=== PATIENT | male | born 1945 | race Caucasian/White ===

== ENCOUNTER 2018-06-09 10:48 | Inpatient (IN) ==
[2018-06-09 11:18] LABS: URINE SOURCE CLEAN CATCH
[2018-06-09 11:25] LABS: BILIRUBIN URINE NEGATIVE (NEGATIVE); BLOOD URINE NEGATIVE (NEGATIVE); COLOR YELLOW; GLUCOSE URINE NEGATIVE (NEGATIVE); KETONE URINE TRACE mg/dL (NEGATIVE); LEUKOCYTES URINE MODERATE (NEGATIVE); NITRITE URINE NEGATIVE (NEGATIVE); PH URINE 5.5; PROTEIN URINE 30 mg/dL (NEGATIVE); SP GRAVITY URINE 1.025; TURBIDITY URINE CLEAR (CLEAR); UROBILINOGEN URINE 2 mg/dL (NORMAL)
[2018-06-09 11:27] LABS: UR EPITHELIAL CELLS <10 /HPF (<10); URINE BACTERIA NEGATIVE /HPF; URINE RBC <10 /HPF (<10)
[2018-06-09 11:51] LABS: ALB/GLOB RATIO 1.5; CREATININE 1.3 mg/dL (0.7-1.2); POTASSIUM 4.2 mmol/L (3.5-5.1); TOTAL BILIRUBIN 1.5 mg/dL (0.20-1.00); TOTAL PROTEIN 6.6 g/dL (6.3-8.3)
[2018-06-09 11:56] LABS: BASO# 0.02 X1000 (0.0-0.2); BASO% 0.3 % (0.0-0.8); EOS# 0.02 X1000 (0.0-0.7); EOS% 0.3 % (0.0-10.0); HEMATOCRIT 38.8 % (42.0-52.0); IMM GRAN# 0.02 X1000 (0.0-0.04); IMM GRAN% 0.3 % (0.0-0.5); LYMPH# 0.35 X1000 (1.2-3.4); LYMPH% 4.4 % (20.5-51.1); MCHC 33.5 g/dL (33-37); MCV 86.6 FL (81-99); MONO% 6.3 % (1.7-9.3); MPV 11.1 FL (7.4-10.4); NEUT# 6.98 X1000 (1.4-6.5); NEUT% 88.4 % (42.2-75.2); PLT 170 X1000 (130-400); RBC 4.48 XMIL (4.7-6.1); RDW 13.6 % (11.5-14.5); WBC 7.89 X1000 (4.8-10.8)
--- NOTE | 2018-06-09 13:07 | Diag Imaging Result Doc PS360 ---
EXAM: CT ABD/PELVIS W/IV CONT ONLY INDICATION: abdo pain TECHNIQUE: This exam was performed using automated exposure control, adjustment of mA or kV according to patient size, and/or use of iterative reconstruction technique. COMPARISON: None. FINDINGS: There is subsegmental atelectasis at both lung bases. There are calcified left hilar lymph nodes indicating prior granulomatous disease and there are calcified granulomata in the lingula. There are calcified granulomata in the liver and spleen. The liver and spleen are unremarkable, otherwise. There is suggestion of mild gallbladder wall thickening and mild pericholecystic stranding. No radiopaque stones are identified. The gallbladder is distended. Correlate clinically for right upper quadrant pain as early cholecystitis cannot completely be excluded. There is no evidence of biliary dilatation. The pancreas is atrophic. There is a nodular focus involving the tail the pancreas that is best seen on image 56 of series 2 measuring 2.2 x 1.8 cm axially. It is nonspecific. Neoplasm cannot be excluded. Consider at least a follow-up CT. MRI may also be helpful if clinically warranted. There are a couple of small simple appearing renal cysts on the right. There are several nonobstructing intrarenal stones on the right. The prostate is enlarged. The urinary bladder is unremarkable. There is extensive diverticulosis coli mainly involving the descending and sigmoid colon. There is no evidence of diverticulitis. The appendix is normal. There is a small to moderate-sized hiatal hernia. There are a few nonspecific fluid-filled loops of small bowel with air-fluid levels with only mild distention. They are nonspecific. There is nothing that would necessarily indicate obstruction. No free abdominal gas or free fluid is identified. IMPRESSION: 1.Mild thickening of the gallbladder wall with surrounding subtle stranding. Mild cholecystitis cannot be excluded. Please correlate with clinical exam. 2.Atrophic pancreas with a small nodular focus involving the tail that is nonspecific. A small neoplasm cannot completely be excluded. Please see above discussion. 3.Nonspecific mildly prominent fluid-filled loops of small bowel that can be seen with mild enteritis. There is nothing that is specific for obstruction. 4.Other incidental/nonacute findings detailed above. Electronically signed by Hossein Miranda 06/09/2018 1:05 PM
[2018-06-09] MEDS ORDERED: NS 1,000 ML IV ONE ×2 (13:27→18:29)
--- NOTE | 2018-06-09 13:38 | PROVIDER DOCUMENTATION ---
This chart was entered by Yola Wong Scribe, acting as scribe for Dontrell Barros MD. HPI-Abdominal Pain/GI Problem - General Chief Complaint: Abdominal Pain Stated Complaint: ABDOMINAL PAIN Time Seen by Provider: 06/09/18 10:49 Source: patient, family Allergies/Adverse Reactions: Patient Allergies Allergy/AdvReac Type Severity Reaction Status Date / Time No Known Allergies Allergy Verified 06/09/18 11:14 Home Medications: Home Medication List Medication Instructions Recorded Confirmed Last Taken Type Aspirin 81 mg PO DAILY 07/26/15 12/01/15 11/26/15 History Amantadine [Symmetrel] 100 mg PO TID 11/27/15 12/01/15 12/01/15 08:00 History Carbidopa/Levodopa [Rytary ER 1 each PO DAILY 11/27/15 12/01/15 11/30/15 08:00 History 36.25 mg-145 mg Cap] Carbidopa/Levodopa/Entacapone 1 each PO 4XDAY 11/27/15 12/01/15 12/01/15 08:00 History [Stalevo 200 Tablet] Celecoxib [Celebrex] 200 mg PO DAILY 11/27/15 12/01/15 11/30/15 21:00 History Donepezil [Aricept] 5 mg PO QAM 11/27/15 12/01/15 11/30/15 21:00 History Pramipexole Di-HCl [Mirapex] 1 mg PO DAILY 11/27/15 12/01/15 11/30/15 08:00 History Quetiapine Fumarate [Seroquel] 100 mg PO DAILY 11/27/15 12/01/15 11/30/15 21:00 History Rasagiline Mesylate [Azilect] 1 mg PO DAILY 11/27/15 12/01/15 11/30/15 08:00 History Hydrocodone/APAP 10 mg/325 mg 1 each PO Q4H PRN #30 tablet 12/01/15 Unknown Rx [[place]-10] Bisacodyl [Dulcolax] 10 mg PO DAILY PRN PRN #20 tab 06/08/18 Unknown Rx Bisacodyl [Dulcolax] 10 mg [place] PRN PRN #10 supp 06/08/18 Unknown Rx Docusate Sodium [Colace] 100 mg PO DAILY #10 cap 06/08/18 Unknown Rx - History of Present Illness-ABD Nature of Presenting Problems: Patient is a 72 year old male who presents to the ED via EMS with epigastric abdominal pain that has gradually worsened. Patient's states patient has a history of constipation and was recently put on Linzess. Denies improvement of symptoms after taking Linzess. report the patient has Parkinson's and dementia but has not been taking his medications for 5 days due to pain. Reports patient has been having hallucinations since not taking medications. Abdominal Pain Onset Location: reports: epigastric Pain Radiation: reports: no radiation Quality of Pain: reports: aching Severity in ED: reports: moderate Onset/Duration: reports: gradual Timing: reports: still present, getting worse Activities at Onset: reports: light activity Modifying Factors: improves with: nothing Associated Symptoms: reports: denies symptoms Bruising or Bleeding Gums?: No Similar Symptoms Previously?: Yes Recently seen or treated by another doctor?: Yes Review of Systems - Adult - REVIEW OF SYSTEMS - ADULT Constitutional: reports: no symptoms reported. denies: chills, fever, fatique Eyes: reports: no symptoms reported Ears, Nose, Mouth & Throat: reports: no symptoms reported Cardiovascular: reports: no symptoms reported Respiratory: reports: no symptoms reported Gastrointestinal: reports: see HPI, abdominal pain (epigastric). denies: diarrhea, nausea, vomiting Genitourinary: reports: no symptoms reported Musculoskeletal: reports: no symptoms reported. denies: back pain, muscle aches, neck pain Integumentary: reports: no symptoms reported Neurological: reports: no symptoms reported Psychiatric: reports: other (hallucinations). denies: anxiety, depression, insomnia Endocrine: reports: no symptoms reported Hematologic/Lymphatic: reports: no symptoms reported Allergic/Immunologic: reports: no symptoms reported All Other Systems: Reviewed and Negative Past History - Adult - PAST MEDICAL HISTORY-ADULT Review of Records: reports: Nursing Assessment Review, Medications Reviewed, Social history reviewed & non-contributory. Major Childhood Illnesses: reports: denies history Cardiovascular: reports: denies history Respiratory: reports: denies history Gastrointestinal: reports: denies history Obstetrical/Gynecological: reports: denies history Genitourinary: reports: denies history Musculoskeletal: reports: denies history Neurological: reports: dementia, Parkinson's Psychiatric: reports: denies history Endocrine/Immune: reports: denies history Other Conditions: reports: denies history - PRIOR SURGERIES/PROCEDURES Surgical/Procedure History: reports: reviewed, not pertinent - IMMUNIZATION STATUS Childhood Immunizations: See Nurse Assessment Flu Vaccine: See Nurse Assessment - FAMILY HISTORY Family History: reviewed, not pertinent - SOCIAL HISTORY Smoking: denies Substance Use: denies Living Situation: family Physical Exam-General - PHYSICAL EXAM-ADULT Initial Vital Signs Reviewed: Yes - CONSTITUTIONAL General Appearance: alert, no apparent distress. negative: slow to respond, obtunded - RESPIRATORY Respiratory: chest non-tender, lungs clear, normal breath sounds. negative: crackles, rhonchi - CARDIOVASCULAR Cardiovascular: normal peripheral pulses, regular rate, rhythm. negative: tachycardia, systolic murmur - GASTROINTESTINAL (ABDOMEN) Abdominal Exam: normal bowel sounds, soft, tenderness (epigastric and suprapubic). negative: distended - MUSCULOSKELETAL Extremity: non-tender, normal inspection. negative: deformity, erythema - SKIN Integumentary: normal color, normal turgor, warm/dry. negative: cyanosis, ecchymosis, erythema, jaundice - NEUROLOGIC Neurologic: grossly normal. negative: aphasia, facial droop - PSYCHIATRIC Psych/Mental Status: normal mood/affect, oriented x 3. negative: paranoid, tearful Progress - PLAN OF CARE/RESULTS Progress/Plan/Lab Results: Vital Signs - 8 hr 06/09/18 11:01 Temperature 98.0 F Pulse Rate 102 H Respiratory Rate 17 Blood Pressure 134/91 O2 Sat by Pulse Oximetry 99 Laboratory Results - last 24 hr 06/09/18 11:01 Urine Source CLEAN CATCH Orders Category Date Time Status CT ABD/PELVIS W/IV CONT ONLY [CT] Stat Exams 06/09/18 11:06 Ordered CBC WITH ELECTRONIC DIFF [HEME] Stat Lab 06/09/18 11:05 Uncollected COMPREHENSIVE METABOLIC PANEL [CHEM] Stat Lab 06/09/18 11:05 Uncollected UA [URINALYSIS] [URINALYSIS] Stat Lab 06/09/18 11:01 Results Result Diagrams: 06/09/18 11:30 06/09/18 11:30 - EKG 1 Time of EKG reading by physician:: 13:53 EKG Read and Signed by:: Dontrell Barros EKG Interpretation (*Must complete 3 of following elements*): Abnormal (ST & T wave abnormality, consider lateral ischemia) Rate: 133 Rhythm: sinus tachycardia AK Interval: normal Comments: possible inferior infarct, age undetermined; - XRAY 1 XRAY Study: Chest Impression: See EMR Report ( EXAM: CHEST-1 VIEW 06/09/2018 HISTORY: sepsis protocol TECHNIQUE: AP portable upright at 1429 COMMENT: The inspiration is suboptimal. There is bibasilar atelectasis. There are calcifications in the left hilum. There are no previous studies available for comparison. IMPRESSION: Granulomatous changes. Poor inspiration. Bibasilar atelectasis. Electronically signed by Jc Hutson 06/09/2018 2:37 PM 06/09/18 1437 Interpreting Physician: Jc Hutson MD Dictated Date/Time: 06/09/18 1436 cc: Dontrell Barros MD; None,PCP) - CT/MRI 1 CT Study: Abdomen, Pelvis Impression: See EMR Report (EXAM: CT ABD/PELVIS W/IV CONT ONLY INDICATION: abdo pain TECHNIQUE: This exam was performed using automated exposure control, adjustment of mA or kV according to patient size, and/or use of iterative reconstruction technique. COMPARISON: None. FINDINGS: There is subsegmental atelectasis at both lung bases. There are calcified left hilar lymph nodes indicating prior granulomatous disease and there are calcified granulomata in the lingula. There are calcified granulomata in the liver and spleen. The liver and spleen are unremarkable, otherwise. There is suggestion of mild gallbladder wall thickening and mild pericholecystic stranding. No radiopaque stones are identified. The gallbladder is distended. Correlate clinically for right upper quadrant pain as early cholecystitis cannot completely be excluded. There is no evidence of biliary dilatation. The pancreas is atrophic. There is a nodular focus involving the tail the pancreas that is best seen on image 56 of series 2 measuring 2.2 x 1.8 cm axially. It is nonspecific. Neoplasm cannot be excluded. Consider at least a follow-up CT. MRI may also be helpful if clinically warranted. There are a couple of small simple appearing renal cysts on the right. There are several nonobstructing intrarenal stones on the right. The prostate is enlarged. The urinary bladder is unremarkable. There is extensive diverticulosis coli mainly involving the descending and sigmoid colon. There is no evidence of diverticulitis. The appendix is normal. There is a small to moderate-sized hiatal hernia. There are a few nonspecific fluid-filled loops of small bowel with air-fluid levels with only mild distention. They are nonspecific. There is nothing that would necessarily indicate obstruction. No free abdominal gas or free fluid is identified. IMPRESSION: 1.Mild thickening of the gallbladder wall with surrounding subtle stranding. Mild cholecystitis cannot be excluded. Please correlate with clinical exam. 2.Atrophic pancreas wi th a small nodular focus involving the tail that is nonspecific. A small neoplasm cannot completely be excluded. Please see above discussion. 3.Nonspecific mildly prominent fluid-filled loops of small bowel that can be seen with mild enteritis. There is nothing that is specific for obstruction. 4.Other incidental/nonacute findings detailed above. Electronically signed by Hossein Miranda 06/09/2018 1:05 PM 06/09/18 1305 Interpreting Physician: Hossein Miranda MD Dictated Date/Time: 06/09/18 1246 cc: Dontrell Barros MD; None,PCP) - CONSULTS/PCP/HOSPITALIST Notification #1 *Consult/PCP/Hospitalist*: RAFI Martinez for Hospitalist Time Discussed: 13:31 Reason/Comments: Dr. Barros consulted with Michelle about patient. Consult Disposition: Will see in ED, Admit Departure - Departure Date of Disposition Decision: 06/09/18 Time of Disposition Decision: 13:31 DIAGNOSIS: Abdominal pain of unknown cause, Abdominal mass, UTI (urinary tract infection) Disposition: ADMITTED INPATIENT 09 Certified Medical Emergency: Emergent Condition: Fair - Critical Care Note This patient required my direct & personal management of CC.: No Attestation - Physician/ DIVYA Attestation Patient care was provided by Advanced Practice Provider:: No The physician spent face to face time with patient:: Yes Advanced Practice Provider documentation review:: Supervising physician onsite and consulted in the evaluation and care of this patient. The physician did have a face to face encounter with the patient. This chart was documented by the indicated scribe, (Yola Wong Scribe) and accurately reflects the services I performed and decisions made by me, Dontrell Barros MD, as attested by the provider's signature.
[2018-06-09] MEDS ORDERED: TYLENOL PO ONE (13:51)
[2018-06-09] MEDS ORDERED: ZOSYN 3.375 GM in NS 50 ML IV ONE (13:55)
[2018-06-09] MEDS ORDERED: VANCOMYCIN 1 GM/NS 1 GM/250 ML IVPB IV ONE (13:55)
[2018-06-09] MEDS ORDERED: HALDOL ONE (14:00)
[2018-06-09] MEDS ORDERED: HALDOL IV ONE (14:01)
[2018-06-09] MEDS ORDERED: ZOFRAN IV PRN (14:08)
[2018-06-09] MEDS ORDERED: NS NEB INH SCH (14:15)
[2018-06-09 14:30] LABS: ALLEN TEST NO; BE -1.5 mmoll (-3.0-3.0); BLOOD TYPE ARTERIAL; HCO3-(ACT) 23.7 mmoll (20.0-26.0); METHB 1.1 % (0.0-1.5); MODALITY ROOM AIR; O2(CT) 17.4 mL/dL (15.0-23.0); PCO2(98.6) 27 mmHg (35-45); PO2(98.6) 82 mmHg (60-100); SAMPLE BLOOD; pH(98.6) 7.49 (7.35-7.45)
--- NOTE | 2018-06-09 14:39 | Diag Imaging Result Doc PS360 ---
EXAM: CHEST-1 VIEW 06/09/2018 HISTORY: sepsis protocol TECHNIQUE: AP portable upright at 1429 COMMENT: The inspiration is suboptimal. There is bibasilar atelectasis. There are calcifications in the left hilum. There are no previous studies available for comparison. IMPRESSION: Granulomatous changes. Poor inspiration. Bibasilar atelectasis. Electronically signed by Jc Hutson 06/09/2018 2:37 PM
[2018-06-09] MEDS: PROTONIX IV SCH (14:51)
[2018-06-09] MEDS: NS 1,000 ML IV SCH (14:51)
[2018-06-09] MEDS: TYLENOL PR PRN (14:52)
--- NOTE | 2018-06-09 16:14 | HISTORY AND PHYSICAL ---
HISTORY OF PRESENT ILLNESS: This is a 72-year-old. His states that 6 days ago, almost a week ago, he started having abdominal discomfort. He went and saw his primary care physician. They tried him on Linzess but only took that 1 day. He did have a bowel movement at that time. I think he came to the emergency room yesterday and they gave him an enema, but she has noticed his abdomen is still uncomfortable. He is more confused and disoriented. In the emergency room, noticed he was spiking a fever. He cannot really help you with history at all. He is lethargic but yet very uncomfortable. PAST MEDICAL HISTORY: Parkinsonism and is on his medications which he has not been taking for the last 6 days because he did not want to. He is not really eating or drinking much at all. He has not had a bowel movement most of the week. I think yesterday, came to the emergency room, had an enema. Here in the hospital, he had a CT of his abdomen. He has mild thickening of the gallbladder wall, surrounding subtle stranding, mild cholecystitis could not be excluded. Atrophic pancreas with small nodular focus involving the tail, nonspecific. Small neoplasm could not be excluded. Nonspecific, mildly prominent fluid-filled loops in small bowel which could represent enteritis. He has had shoulder arthritis. He has had inguinal hernia repair. He still has his gallbladder and appendix. I do not think he has had any abdominal surgery. FAMILY HISTORY: Arthritis in his mother. Sister with diabetes. Father with heart disease. SOCIAL HISTORY: Negative for alcohol or tobacco. REVIEW OF SYSTEMS: According to , she has not noticed any weight gain or loss but he has not been eating or drinking much this last week. She has not noticed any focal neurologic changes or changes in his hearing or visual acuity. No neck pain. No recent falls reported. Cardiovascular: No chest pain or tachy palpitations. Gastrointestinal and Genitourinary: No complaints, according to , other than the abdominal pain and discomfort, and the constipation PHYSICAL EXAMINATION: VITAL SIGNS: Temperature was 102.8 degrees, pulse 130, respirations 35, blood pressure 165/112. HEENT: Pupils are equal and round. LUNGS: Clear in all lung [place]. CARDIOVASCULAR EXAMINATION: Regular rhythm and rate without murmur or S3. ABDOMEN: Uncomfortable. He will not really let you examine it. Positive bowel sounds in his abdomen. EXTREMITIES: No pedal edema. SKIN: Warm and dry. WEIGHT AND HEIGHT: Weight 170 pounds, height 6 feet. LAB: CBC: White count 7890, hematocrit is 38, platelet count 170,000. Sodium 139, potassium 4.2, chloride 106, BUN 28, creatinine 1.3. Total bilirubin 1.5, AST 18, ALT was 9. Urinalysis unremarkable. ASSESSMENT AND PLAN: 1. Abdominal pain. It could very well be cholecystitis. It could also be colitis or an enteritis. We are going to put him on broad-spectrum antibiotics to cover for gram-negative organisms and Enterococcus. Give him some fluids. I am going to ask gastroenterology and surgery to kind of help, follow along. He cannot really help us much with history. 2. Parkinsonism. He apparently is not taking his medication. He is confused and having some hallucinations as well. He is supposed to be on amantadine 100 mg three times a day, aspirin 81 mg a day, carbidopa/levodopa 36.25/125 capsule once a day, and then he takes Stalevo which is carbidopa/levodopa and entacapone 200 mg tablet 4 times a days, Celebrex 200 mg a day, Colace - he is supposed to take 100 mg a day, Aricept 5 mg a day, hydrocodone 10 mg every 4 hours as needed (we are going to hold that), Mirapex 1 mg daily, Seroquel 100 mg daily, and Azilect which is rasagiline 1 mg daily, so we will try and get him back on his Parkinson's medicines. 3. He apparently has a history of dementia and cognitive decline. 4. Questionable diverticulitis, colitis. He definitely has diverticulosis. We will give him fluids at 85 mL an hour. Looking back, I do not see any evidence of an echocardiogram so it would probably be worthwhile to get an echocardiogram to look at his left ventricular function. We will check T4, TSH, B12, and folate. Follow his electrolytes including magnesium and ask DR. Osman and general surgery to follow along. I guess I will try to use Haldol as needed. I did talk to family that he may require four-point restraint. We are going to move him to the intensive care unit. cc: Gino Kaye MD
[2018-06-09 16:21] LABS: INR 1.16; PROTIME 15.7 Seconds (11.0-16.0)
[2018-06-09 16:22] LABS: PTT 35.2 Seconds (22.3-41.8)
[2018-06-09] MEDS: ATROVENT NEB INH SCH ×3 (16:30→23:36)
[2018-06-09] MEDS: XOPENEX NEB INH SCH ×3 (16:30→23:36)
[2018-06-09 17:51] LABS: AMYLASE 12 U/L (20-200); LIPASE 10 U/L (13-60)
[2018-06-09] MEDS ORDERED: NS 1,000 ML IV SCH (18:00)
--- NOTE | 2018-06-09 20:36 | GENERAL SURGERY CONSULTATION ---
DATE: 06/09/2018 REASON FOR CONSULTATION: Abdominal pain, possible cholecystitis. HISTORY OF PRESENT ILLNESS: This is a 72-year-old male with known Parkinson disease who over the last 6 days has been complaining of upper abdominal pain, swelling, bloating and nausea. He has had a few bowel movements after taking Linzess and having an enema, but continues to have abdominal distention and discomfort. He is more confused than baseline. He also started spiking a fever today. The patient is really not able to give much history and the history is obtained from his family. No particular exacerbating or relieving factors. PAST MEDICAL HISTORY: Parkinson disease, gastroesophageal reflux disease. PAST SURGICAL HISTORY: Bilateral open inguinal hernia repairs, right rotator cuff surgery. ALLERGIES: No known drug allergies. FAMILY HISTORY: Positive for arthritis, diabetes and heart disease. SOCIAL HISTORY: Negative for tobacco or alcohol. REVIEW OF SYSTEMS: Unable to obtain. HOME MEDICATIONS: Aspirin, Seroquel, Aricept, Celebrex, Symmetrel, Stalevo, Mirapex, Rytary, [place], Dulcolax, Colace. PHYSICAL EXAMINATION: Vital Signs: Temperature 102.8, pulse 101 to 130, respiratory rate 17 to 35, blood pressure 118/84. O2 sat 96%. General: An elderly male who looks his stated age and appears to be ill. HEENT: Normocephalic, atraumatic. Extraocular muscles intact. Pupils equal, round, reactive to light. Sclerae anicteric. Neck: Supple. No thyromegaly. Cardiovascular: Tachycardic. Respiratory: Bilateral breath sounds. No work of breathing. Gastrointestinal: Soft, diffusely tender but mostly in the epigastrium. No rebound or guarding. No mass or hernia is appreciated. Extremities: No clubbing, cyanosis or edema. Skin: Warm and dry. No rash. Musculoskeletal: Moves all extremities equally. LABORATORY: White blood cell count 7.9, hemoglobin 13, hematocrit 38.8, platelet count 170,000, 88% neutrophils. pH 7.5, pCO2 27, PaO2 82, bicarb 23, base deficit -1.5, lactate 1.4. Sodium 139, potassium 4.2, chloride 106, CO2 24, BUN 28, creatinine 1.3, glucose 121, calcium 9.0, AST 18, ALT 9, alkaline phosphatase 69, total bilirubin 1.5, amylase 12, lipase 10, serum lactate 1.4. Urinalysis moderate leukocytes, 10 to 20 white blood cells, negative bacteria, negative nitrite. IMAGING: Abdominal and pelvis CT scan was reviewed by me and official report was also reviewed. He has a moderately distended gallbladder with mild gallbladder wall thickening and stranding around it. No radiopaque stones are identified. The pancreas appears atrophic and there is a nodular lesion in the tail of the pancreas measuring roughly 2 cm in size. This could be a neoplasm. There are several nonobstructing stones in the right kidney. The prostate is enlarged. There is extensive diverticulosis, but without evidence of diverticulitis. The appendix is normal. There is a small to moderate hiatal hernia. Several small bowel loops are mildly fluid- filled and distended. There is no free air or free fluid. ASSESSMENT AND PLAN: A 72-year-old male with abdominal pain, distention and fever. Etiology is unclear, but cholecystitis is suspected. We will start him on Zosyn. An ultrasound and HIDA scan are planned in the morning. I will also check an amylase and lipase to rule out pancreatitis. Thank you for the consultation. cc: Les Vasquez MD [facility]
[2018-06-09] MEDS ORDERED: MORPHINE IV ONE (20:44)
[2018-06-09] MEDS: ZOSYN 3.375 GM in NS 50 ML IV SCH (21:13)
[2018-06-09] MEDS: HALDOL IV PRN (23:47)
[2018-06-10 03:12] LABS: ALLEN TEST YES; BE -3.9 mmoll (-3.0-3.0); BLOOD TYPE ARTERIAL; HCO3-(ACT) 21.9 mmoll (20.0-26.0); METHB 1.1 % (0.0-1.5); MODALITY VENTIMASK; O2(CT) 17.4 mL/dL (15.0-23.0); O2HB 96.7 % (95.0-99.0); PCO2(98.6) 28 mmHg (35-45); PO2(98.6) 147 mmHg (60-100); SAMPLE BLOOD; SAO2 99.4 % (95.0-100.0); THB 12.6 g/dL (11.5-17.4); pH(98.6) 7.44 (7.35-7.45)
[2018-06-10] MEDS: NS 1,000 ML IV SCH (03:14)
[2018-06-10] MEDS: PROTONIX IV SCH ×2 (03:15→13:36)
[2018-06-10] MEDS: SODIUM CHLORIDE 0.9% INJ SCH ×2 (03:15→13:37)
[2018-06-10] MEDS: ZOSYN 3.375 GM in NS 50 ML IV SCH ×4 (03:15→20:13)
[2018-06-10] MEDS: HALDOL IV PRN (03:17)
[2018-06-10] MEDS: ATROVENT NEB INH SCH ×5 (03:30→20:10)
[2018-06-10] MEDS: XOPENEX NEB INH SCH ×5 (03:30→20:10)
[2018-06-10 03:53] LABS: BASO# 0.02 X1000 (0.0-0.2); BASO% 0.2 % (0.0-0.8); EOS# 0.03 X1000 (0.0-0.7); EOS% 0.3 % (0.0-10.0); HEMATOCRIT 37.6 % (42.0-52.0); HEMOGLOBIN 12.5 g/dL (14.0-18.0); IMM GRAN# 0.03 X1000 (0.0-0.04); IMM GRAN% 0.3 % (0.0-0.5); LYMPH# 0.22 X1000 (1.2-3.4); LYMPH% 2.3 % (20.5-51.1); MCH 28.9 PG (27-31); MCHC 33.2 g/dL (33-37); MONO# 0.42 X1000 (0.11-0.59); MONO% 4.3 % (1.7-9.3); MPV 11.8 FL (7.4-10.4); NEUT# 8.98 X1000 (1.4-6.5); NEUT% 92.6 % (42.2-75.2); PLT 160 X1000 (130-400); RBC 4.32 XMIL (4.7-6.1); RDW 13.9 % (11.5-14.5)
[2018-06-10 04:13] LABS: INR 1.35; PROTIME 17.8 Seconds (11.0-16.0)
[2018-06-10 04:14] LABS: PTT 37.9 Seconds (22.3-41.8)
[2018-06-10 04:15] LABS: ALB/GLOB RATIO 1.2; ALBUMIN 3.3 g/dL (3.5-5.0); CALCIUM 8.2 mg/dL (8.8-10.2); CREATININE 1.7 mg/dL (0.7-1.2); MAGNESIUM 1.6 mg/dL (1.5-2.7); TOTAL BILIRUBIN 1.25 mg/dL (0.20-1.00); TOTAL PROTEIN 6.1 g/dL (6.3-8.3)
[2018-06-10 04:26] LABS: HEMOGLOBIN A1C 4.7 % (4.8-6.0)
[2018-06-10 04:40] LABS: CK-MB 6.47 ng/mL (0.0-5.0)
[2018-06-10 04:52] LABS: FREE T4 1.19 ng/dL (0.93-1.70); TSH 1.67 uIUmL (0.27-4.20)
--- NOTE | 2018-06-10 06:48 | EKG Report ---
Test Performed on : 06/10/2018 06:26:31 AM Test Reason : chest pain Blood Pressure : / mmHG Vent. Rate : 102 BPM Atrial Rate : 102 BPM P-R Int : 176 ms QRS Dur : 086 ms QT Int : 342 ms P-R-T Axes : 017 -03 065 degrees QTc Int : 445 ms Sinus tachycardia. Minimal voltage criteria for LVH, may be normal variant Inferior infarct (cited on or before 09-JUN-2018) Abnormal ECG When compared with ECG of 09-JUN-2018 13:53, (Unconfirmed) No significant change was found Confirmed by Jesús CLINTON, Mack ([id number]) on 06/10/2018 8:53:24 AM
--- NOTE | 2018-06-10 07:35 | Diag Imaging Result Doc PS360 ---
EXAM: US GB < RUQ (LIMITED) HISTORY: abdominal pain TECHNIQUE: Right upper quadrant ultrasound COMPARISON: None. FINDINGS: The pancreas, aorta, and inferior vena cava are all obscured. There is fatty infiltration of the liver. It is difficult to penetrate the liver. Normal right kidney. No hydronephrosis. There is a lower pole cyst measuring 2.3 cm. The common bile duct measures 5 mm. There is thickening to the wall of the gallbladder with trace pericholecystic fluid. No stones or sludge identified. IMPRESSION: 1.Thickening to the wall of the gallbladder without stones consistent with acalculous cholecystitis 2.Fatty infiltration of the liver Electronically signed by Jm Mondragon 06/10/2018 7:33 AM
[2018-06-10] MEDS ORDERED: VANCOMYCIN IV PER PHARMACY MISC SCH (08:00)
--- NOTE | 2018-06-10 08:41 | EKG Report ---
Test Performed on : 06/09/2018 1:53:27 PM Test Reason : TACHYCARDIA Blood Pressure : / mmHG Vent. Rate : 133 BPM Atrial Rate : 133 BPM P-R Int : 168 ms QRS Dur : 086 ms QT Int : 278 ms P-R-T Axes : 036 -07 073 degrees QTc Int : 413 ms Sinus tachycardia. Possible Inferior infarct , age undetermined ST & T wave abnormality, consider lateral ischemia Abnormal ECG When compared with ECG of 09-JUN-2018 13:51, (Unconfirmed) Sinus rhythm. has replaced Electronic ventricular pacemaker Unconfirmed Result
--- NOTE | 2018-06-10 09:04 | Diag Imaging Result Doc PS360 ---
EXAM: HIDA SCAN W/O EJECT. FRACTION HISTORY: abdominal pain TECHNIQUE: Nuclear medicine HIDA scan COMPARISON: None. FINDINGS: 5.5 mCi Choletec administered. There is normal uptake within the liver. Normal emptying into the small bowel. There is no filling of the gallbladder through 1 1/2 hours. IMPRESSION: Abnormal exam with no filling of the gallbladder. Electronically signed by Jm Mondragon 06/10/2018 9:02 AM
[2018-06-10] MEDS: VANCOMYCIN 1,800 MG in NS 500 ML IV SCH (09:55)
--- NOTE | 2018-06-10 10:11 | PROGRESS NOTE ---
DATE: 06/10/2018 SUBJECTIVE: Mr. Brandon just finished getting his bath. His still appears uncomfortable. He did not open his eyes. He is moaning and you can tell he is still uncomfortable and confused. OBJECTIVE: Vital signs: Temperature 98.4 degrees, pulse 98, respirations 37, blood pressure 96/61. HEENT: Pupils are equal and reactive. Neck: No distended neck veins. Lungs: Clear in all lung [place]. Cardiovascular: Regular rhythm and rate without murmur or S3. Abdomen: Soft. Skin: Warm and dry. LABORATORY DATA: Reviewed from yesterday. White count 9700, hematocrit is 37, platelet count is 160,000. Sodium 140, potassium 4.0, chloride 108, BUN 30, creatinine 1.7 which has gone up from 1.3 yesterday, transaminases are normal. CK came up to 640. Troponin is less than 0.01. Albumin is 3.3. T4 is 1.19. TSH is 1.67. Cortisol 28. B12 is 298. Protime is 17.8. Urine is clear. pH is 7.44, pCO2 28, PO2 is 147, O2 saturation is 99% on 50% Ventimask. DIAGNOSTIC DATA: His ejection fraction by nuclear study for the gallbladder, there was no abnormal exam with no filling in the gallbladder on the HIDA scan. Abdominal ultrasound. Thickening of the wall of the gallbladder without stone consistent with acalculous cholecystitis. Fatty infiltration of the liver appreciated. Abdominal and pelvic CT done yesterday, mild thickening of the gallbladder with surrounding subtle stranding, mild cholecystitis cannot be excluded. Atrophic pancreas with small nodular focus involving the tail is nonspecific. There is mildly prominent fluid-filled loops of small bowel which could be consistent with enteritis. ASSESSMENT AND PLAN: 1. A 72-year-old male with abdominal pain, confusion, cannot help us much with history, distention and fever, etiology unclear. Cholecystitis is suspected, acalculous cholecystitis. Continue broad-spectrum antibiotics. HIDA scan shows abnormal filling. Surgery is following and GI will follow as well. 2. Parkinson disease. Trying to get him back on his normal medications. 3. Suspect underlying dementia as well. He has confusion and he has had a history of cognitive decline. 4. Questionable diverticulitis and colitis as well as possible small-bowel enteritis. We will continue current antibiotics. Getting normal saline at 85 mL an hour, Protonix 40 mg IV q.12, vancomycin 1800 mg 36 hours, Zosyn 3.375 g IV q.6 hours, vancomycin. Continue present therapy. cc: Gino Kaye MD MTDD
[2018-06-10] MEDS ORDERED: PATIENT'S OWN MED PO SCH ×2 (10:15→10:30)
[2018-06-10] MEDS ORDERED: ARICEPT PO SCH (10:15)
[2018-06-10] MEDS ORDERED: SEROQUEL PO SCH (10:15)
[2018-06-10] MEDS: ASPIRIN PO SCH (10:30)
[2018-06-10] MEDS: CYANOCOBALAMIN IM SCH (10:58)
[2018-06-10] MEDS: FOLIC ACID 1 MG in NS 50 ML IV SCH (10:58)
[2018-06-10] MEDS ORDERED: MORPHINE IV ONE (12:16)
[2018-06-10] MEDS: PATIENT'S OWN MED PO SCH ×5 (12:26→21:39)
[2018-06-10] MEDS: TYLENOL PR PRN (12:32)
--- NOTE | 2018-06-10 12:40 | GENERAL SURGERY PROGRESS NOTE ---
DATE: 06/10/2018 SUBJECTIVE: The patient continues to have evidence of abdominal pain. He also continues to be poorly responsive or at least somewhat agitated and uncooperative. He has not been able to get his home Parkinson medications because he is not alert enough to swallow water and take the pills. OBJECTIVE: His temperature has remained elevated off and on throughout the night. However, the most recent one was 99.2 at 9 this morning, pulse 108, respiratory rate 40, O2 saturation 96%, blood pressure 104/69. LABORATORY: White blood cell count 9.7, hemoglobin 12.5, hematocrit 37, platelet count 160. INR 1.35. The pH is 7.44, pCO2 28, PaO2 147, bicarbonate 21.9, base deficit -3.9, lactate 1.9. Electrolytes reviewed and notable for CO2 17, BUN 30, creatinine 1.7, glucose 117. IMAGING: His ultrasound did show a thickened gallbladder wall with pericholecystic fluid, and his HIDA scan showed no filling of the gallbladder. ASSESSMENT AND PLAN: A 72-year-old male with acute cholecystitis and altered mental status with a past medical history significant for Parkinson disease. We are planning laparoscopic cholecystectomy versus open cholecystectomy today. I discussed the risks, benefits, alternatives with his family, including his , including bleeding, infection, injury to surrounding organs, pneumonia, and other imponderables. They understand and agree to proceed. Postoperatively, we plan to allow him to take his Parkinson medications. His says that his mental status typically does decline when he misses doses, and usually rebounds after he takes his medicines. He remains on Zosyn. cc: Les Vasquez MD
[2018-06-10] MEDS ORDERED: SYMMETREL PO SCH (13:00)
[2018-06-10 13:35] LABS: ALLEN TEST YES; BE -2.5 mmoll (-3.0-3.0); BLOOD TYPE ARTERIAL; HCO3-(ACT) 22.9 mmoll (20.0-26.0); METHB 0.5 % (0.0-1.5); O2(CT) 15.2 mL/dL (15.0-23.0); O2HB 95.5 % (95.0-99.0); PCO2(98.6) 33 mmHg (35-45); PO2(98.6) 75 mmHg (60-100); SAMPLE BLOOD; SAO2 98.8 % (95.0-100.0); THB 11.3 g/dL (11.5-17.4); pH(98.6) 7.42 (7.35-7.45)
[2018-06-10 13:36] LABS: MODALITY CANNULA
[2018-06-10] MEDS ORDERED: MARCAINE 0.25% PF/EPI 1:200,000 ONE (13:54)
[2018-06-10] MEDS ORDERED: SODIUM CHLORIDE 0.9% ONE (13:55)
[2018-06-10] MEDS ORDERED: LR 1,000 ML ONE (13:55)
[2018-06-10] MEDS ORDERED: QUELICIN (DOSE) ONE (14:01)
[2018-06-10] MEDS ORDERED: XYLOCAINE-MPF 2% ONE (14:01)
[2018-06-10] MEDS ORDERED: DIPRIVAN 1% ONE (14:02)
[2018-06-10] MEDS ORDERED: AMIDATE ONE (14:33)
[2018-06-10] MEDS ORDERED: FENTANYL ONE (14:34)
[2018-06-10] MEDS ORDERED: ZEMURON ONE (14:47)
[2018-06-10] MEDS ORDERED: NEOSTIGMINE ONE (15:37)
[2018-06-10] MEDS ORDERED: ROBINUL ONE (15:37)
--- NOTE | 2018-06-10 16:05 | Diag Imaging Result Doc PS360 ---
OPERATIVE CHOLANGIOGRAM - 06/10/2018 INDICATION: CHOLECYSTITIS TECHNIQUE: The exam was performed by the patient's surgeon. Total fluoroscopy time was 16 seconds. One image was obtained. COMPARISON: None FINDINGS: Contrast was infused into the cystic duct. This outlines a normal caliber common bile duct. No filling defects or strictures. There is good passage of contrast into the duodenum. IMPRESSION: No complication. Electronically signed by Sudeep Boudreaux 06/10/2018 4:02 PM
--- NOTE | 2018-06-10 17:09 | ECHO REPORT ---
ORDER DATE: 06/10/2018 INDICATION: Abdominal pain and dyspnea. M-MODE MEASUREMENTS: Left ventricle end diastole: 4.1 cm. Left ventricle end systole: 2.2 cm. Posterior wall: 1.1 cm. Interventricular septum: 1.1 cm. Left atrium: 4.2 cm. Aortic diameter: 3.3 cm. SUMMARY OF 2-DIMENSIONAL IMAGIN. Left ventricular function is normal. Ejection fraction is 65% to 70%. No wall motion abnormality is noted. 2. The right ventricle appears to be grossly normal. 3. The atria appear to be grossly normal. 4. The mitral valve opens normally. Color flow mapping unremarkable. 5. Pulsed wave Doppler of mitral inflow shows reversal of the E and the A ratio. The ratio is 0.8. 6. Tissue Doppler of septal and lateral mitral annulus averages 7 cm. There is no diastolic dysfunction. 7. The aortic valve opens normally. There is mild degree of sclerosis of the aortic valve with no definite stenosis. 8. The pulmonic valve looks unremarkable. 9. The tricuspid valve shows a mild degree of regurgitation. The inferior vena cava did not appear to be dilated. 10. Pulmonary pressure is grossly at 31 to 36 mmHg. 11.There is no pericardial effusion, mass, and no thrombus. 12.The left atrium appears to be moderately enlarged. Clinical correlation is recommended. cc: MD Michelle Ellis CRNP
--- NOTE | 2018-06-10 17:30 | Diag Imaging Result Doc PS360 ---
CHEST/ABD TUBE PLACEMENT - 06/10/2018 INDICATION: NG tube placement confirmation. COMPARISON: 06/09/2018 FINDINGS: Detail is very poor. Nasogastric tube position is indeterminate. IMPRESSION: Nondiagnostic exam. Repeat x-ray recommended. Electronically signed by Sudeep Boudreaux 06/10/2018 5:28 PM
--- NOTE | 2018-06-10 18:07 | OPERATIVE NOTE ---
PROCEDURE DATE: 06/10/2018 PREOPERATIVE DIAGNOSIS: Acute cholecystitis. POSTOPERATIVE DIAGNOSIS: Acute cholecystitis. OPERATION: Laparoscopic cholecystectomy with operative cholangiogram. SURGEON: Lse Vasquez MD RAILROAD CAR REPAIRMAN: FILIPPO Vela ANESTHESIA: General. ESTIMATED BLOOD LOSS: 20 mL COMPLICATIONS: None apparent. SPECIMENS: Gallbladder. DRAINS: One #19 Sukhwinder. FINDINGS: The gallbladder was acutely inflamed. The cholangiogram revealed normal proximal hepatic radicles as well as distal common bile duct, with flow of contrast seen in the duodenum and without filling defects or stenoses. There was also bile staining of the peritoneum with some bile-tinged ascites and low-grade peritonitis. PROCEDURE: The patient was brought to the operating room and placed supine on the table. General anesthesia was induced. He was prepped and draped in the usual sterile fashion. Marcaine 0.25% was used to anesthetize our incisions. An 11 mm incision was made above the umbilicus. The fascia was exposed and incised sharply. Entry into the peritoneal cavity was obtained under direct vision with the Optiview device. Pneumoperitoneum was established. The camera was inserted. There was no evidence of injury to underlying structures. He was placed in reverse Trendelenburg and left rotation. Three 5 mm incisions for ports were placed across the epigastrium under direct vision. Another 11 mm port was placed in the right midabdomen under direct vision. A fan retractor was brought in, and this was used to hold down the omentum and colon for better exposure. The legal assistant grasped the gallbladder at the dome. I drained the gallbladder with the suction ammunition components inspector and needle, and then we lifted the gallbladder up superiorly. The triangle of Calot was dissected out with the [place] forceps, Kittner dissectors and hook cautery until the critical view was obtained. The cystic artery was clipped proximally and distally and incised in between. A clip was placed on the distal cystic duct. A ductotomy was made proximal to this with scissors. A 14-gauge Angiocath was passed through the right upper quadrant. The Taut cholangiogram catheter was passed through this into the cystic duct and held in place with a clip. The cholangiogram was performed with findings as noted above. The clipped catheter and Angiocath were removed. Three clips were placed on the proximal cystic duct. It was divided distal to these with scissors. The gallbladder was removed from liver bed using hook cautery, obtaining hemostasis as we went. The gallbladder was placed in an EndoCatch bag. I inspected the dissection area. There was some bloody oozing from the liver bed. I cauterized this with hook cautery. This appeared to significantly slow it down. I did place some Surgicel gauze against the raw areas of the liver bed in the gallbladder fossa. I then irrigated copiously and washed out the old blood, irrigation and bile in Morison pouch, over the right side of the liver, along the right paracolic gutter and in the pelvis. I then brought the gallbladder and bag out through the umbilical port site. I then brought a 19 Sukhwinder drain in and positioned it under the liver adjacent to the clips. It was anchored to the skin with 3-0 nylon and came out through a right lateral port site. We then desufflated the abdomen and removed the remaining ports. The right midabdominal incision fascia was closed with interrupted 0 Vicryl. The umbilical fascia was closed with a [id number] 0 Vicryl. The skin was closed with 4-0 subcuticular Biosyn. There were no apparent complications. He was awakened in fair condition and transferred to the ICU. cc: Les Vasquez MD
--- NOTE | 2018-06-10 18:45 | GASTROENTEROLOGY CONSULTATION ---
DATE: 06/10/2018 REASON FOR CONSULTATION: Abdominal pain, constipation. HISTORY OF PRESENT ILLNESS: This is a 72-year-old male who we have seen in the past. He was last seen in 2015. The patient had issues with GERD and dysphagia, had an EGD in 08/2015 that showed gastritis and esophagitis. He continued to have dysphagia, so repeat EGD was done in 10/2015 for esophageal dilation. The patient followed up with us in the office after the procedure, but had not followed back since then. He also had a colonoscopy in 2014 that showed diverticulosis and hemorrhoids. Information is currently obtained from his daughter and son. The patient is drowsy and somewhat confused. The daughter states he has had some issues with abdominal pain, abdominal swelling and constipation. He had seen his neurologist, Dr. Talbert, last Friday and was prescribed Linzess. Daughter states he took one Linzess dose and had severe diarrhea and abdominal pain. He has had progressive issues with abdominal distention and discomfort along with nausea, and came in for further evaluation. The patient also had reported fever. No reported evidence of blood in the stool or black stools. No evidence of hematemesis. During workup including CT scan, findings show mild thickening of the gallbladder wall with stranding, possible cholecystitis. He also had findings of atrophic pancreas, with a small nodular focus involving the tail that was nonspecific. Nonspecific prominent fluid-filled loops of the small bowel were noted. The patient had abdominal ultrasound that showed thickening to the wall of the gallbladder without noted stones, consistent with acalculous cholecystitis, and noted fatty infiltration of the liver. The patient then had a HIDA scan today that showed no filling of the gallbladder within 1-1/2 hours. The patient has been seen by [facility] and there are plans for cholecystectomy today. PAST MEDICAL HISTORY: Parkinson disease, GERD. PAST SURGICAL HISTORY: Inguinal hernia repair, right rotator cuff surgery. ALLERGIES: No known drug allergies. HOME MEDICATIONS: Uroxatral 10 mg; Symmetrel 100 mg 3 times a day; aspirin 81 mg daily; Dulcolax p.o. and suppositories as needed; carbidopa/levodopa 36/125 daily; Stalevo 200 mg 4 times a day; Celebrex 200 mg daily; Colace daily; Aricept 5 mg daily; [place] 10 one every 4 hours as needed; omeprazole 40 mg daily; Nuplazid 10 mg twice a day; Mirapex 1 mg daily; Seroquel 100 mg daily; Azilect 1 mg daily. SOCIAL HISTORY: Denies tobacco or alcohol use. REVIEW OF SYSTEMS: Per history of present illness. PHYSICAL EXAMINATION: Vital signs: Temperature 101 degrees, pulse 87, blood pressure 97/54. Generally, the patient was drowsy. He did arouse but he was confused at the time of my evaluation, prior to his surgery. HEENT: Normocephalic, atraumatic. Pupils equal, round and reactive to light. Sclerae are nonicteric. Respiratory: Lung sounds essentially clear. Cardiovascular: Regular rate and rhythm. Abdomen tender. LABORATORY DATA: Hematology: WBC 9.70, hemoglobin 12.5, hematocrit 37.6, MCV 87.0, platelets 160,000. Coagulation: Pro time 17.8, INR 1.35, PTT 37.9. Chemistry: Sodium 140, potassium 4.0, chloride 108, CO2 is 17, BUN 30, creatinine 1.7, glucose 117, calcium 8.2, magnesium 1.6. Total bilirubin 1.25, AST 27, ALT 20, alkaline phosphatase 66, creatine kinase is 645. Vitamin B12 is 298, folate 5.1. TSH 1.67, free T4 is 1.19. Cortisol 28.9. ASSESSMENT AND PLAN: 1. Abdominal pain. 2. Constipation. 3. Parkinson disease. 4. Findings consistent with cholecystitis. HIDA scan showed no filling of the gallbladder within 1-1/2 hours. The patient has been seen by [facility] and there are plans for cholecystectomy today. We will continue to follow. The patient may need to be added on laxative postoperatively since he has a history of constipation. Further plans will be made according to his progress. I have discussed this case with Dr. Osman. Further plans will be made as needed. Thank you for this consultation. Dictated by RAFI Love for Anthony Osman MD cc: RAFI Ramires MD
[2018-06-10] MEDS: MORPHINE IV PRN (19:03)
--- NOTE | 2018-06-10 19:13 | Diag Imaging Result Doc PS360 ---
CHEST/ABD TUBE PLACEMENT - 06/10/2018 6:37 PM INDICATION: NG tube placement confirmation COMPARISON: 5:06 PM FINDINGS: There is a nasogastric tube in good position in the stomach. IMPRESSION: Nasogastric tube in the stomach. Electronically signed by Sudeep Boudreaux 06/10/2018 7:10 PM
[2018-06-10] MEDS: SEROQUEL PO SCH (20:12)
[2018-06-10] MEDS: SYMMETREL PO SCH (20:12)
[2018-06-10] MEDS: ARICEPT PO SCH (20:12)
[2018-06-11] MEDS: XOPENEX NEB INH SCH ×7 (00:02→23:35)
[2018-06-11] MEDS: ATROVENT NEB INH SCH ×7 (00:02→23:35)
[2018-06-11] MEDS: NS 1,000 ML IV SCH (01:47)
[2018-06-11] MEDS: MORPHINE IV PRN ×3 (01:48→21:03)
[2018-06-11] MEDS: ZOSYN 3.375 GM in NS 50 ML IV SCH ×4 (01:52→21:04)
[2018-06-11] MEDS: PROTONIX IV SCH ×2 (01:52→13:57)
[2018-06-11] MEDS: SODIUM CHLORIDE 0.9% INJ SCH ×2 (01:52→13:57)
[2018-06-11 06:17] LABS: CALCIUM 8.1 mg/dL (8.8-10.2); CREATININE 1.6 mg/dL (0.7-1.2); POTASSIUM 3.9 mmol/L (3.5-5.1)
[2018-06-11 06:18] LABS: BASO# 0.01 X1000 (0.0-0.2); BASO% 0.1 % (0.0-0.8); EOS# 0.11 X1000 (0.0-0.7); EOS% 1.3 % (0.0-10.0); HEMOGLOBIN 11.7 g/dL (14.0-18.0); IMM GRAN# 0.02 X1000 (0.0-0.04); IMM GRAN% 0.2 % (0.0-0.5); LYMPH# 0.31 X1000 (1.2-3.4); LYMPH% 3.8 % (20.5-51.1); MCH 28.9 PG (27-31); MCHC 32.5 g/dL (33-37); MCV 88.9 FL (81-99); MONO# 0.25 X1000 (0.11-0.59); MPV 11.8 FL (7.4-10.4); NEUT# 7.53 X1000 (1.4-6.5); NEUT% 91.6 % (42.2-75.2); PLT 143 X1000 (130-400); RBC 4.05 XMIL (4.7-6.1); RDW 14.4 % (11.5-14.5); WBC 8.23 X1000 (4.8-10.8)
[2018-06-11] MEDS ORDERED: PRILOSEC PO SCH (07:00)
[2018-06-11] MEDS ORDERED: CARDIZEM IV ONE (08:30)
[2018-06-11] MEDS: SYMMETREL PO SCH ×2 (08:43→21:07)
[2018-06-11] MEDS: ASPIRIN PO SCH (08:43)
[2018-06-11] MEDS: D5 1/2 NS + KCL 20 MEQ 1,000 ML IV SCH ×2 (08:43→21:06)
[2018-06-11] MEDS: CYANOCOBALAMIN IM SCH (08:43)
[2018-06-11] MEDS: CARDIZEM 125 MG in NS 100 ML IV SCH ×2 (08:49→16:56)
--- NOTE | 2018-06-11 08:49 | GENERAL SURGERY PROGRESS NOTE ---
DATE: 06/11/2018 SUBJECTIVE: The patient has had a relatively uneventful night. He remains poorly responsive, but will show minimal response to verbal commands or physical stimulation. He did not get any of his Parkinson medications as the NG tube placement was difficult to confirm; it is in place now. OBJECTIVE: Vital Signs: He is afebrile. During my exam, his pulse was in the low 100s and then unexpectedly started jumping up into the 130s to 180s. Blood pressure 113/68, O2 saturation 97%, respiratory rate 23. Urine output 1000 mL. General: He is somnolent, but does open his eyes and wiggle his fingers to command, otherwise is poorly responsive. CV: Tachycardic and irregular I believe. Respiratory: Bilateral breath sounds. No work of breathing. GI: Soft, minimally tender. Incisions intact. MARCELA drain with old bloody drainage. Extremities: No significant edema in the extremities. LABORATORY: White blood cell count 8.2, hemoglobin 11.7, hematocrit 36, platelet count 143. Electrolytes notable for sodium 147, chloride 114, BUN 41, creatinine 1.6, glucose 115, calcium 8.1. IMAGING: An NG tube placement x-ray last night did show the tube down into the stomach. ASSESSMENT AND PLAN: A 72-year-old male postoperative day 1 laparoscopic cholecystectomy for acute cholecystitis. He also had bilious ascites and early peritonitis. His microbiology report shows gram-negative rods in the blood, so he is bacteremic, and now he is showing significant tachycardia. We will obtain a stat electrocardiogram and keep him in the intensive care unit, keep him on Zosyn. We will give him his Parkinson medications via the nasogastric tube and await further improvement in his mental status. He will remain on nothing by mouth for now otherwise. cc: Les Vasquez MD
[2018-06-11] MEDS ORDERED: LOPRESSOR IV PRN (09:05)
--- NOTE | 2018-06-11 09:29 | CARDIOLOGY CONSULTATION ---
DATE: 06/11/2018 CHIEF COMPLAINT ON PRESENTATION: Per chart review, looks to be abdominal discomfort and confusion. HISTORY OF PRESENT ILLNESS: Mr. Brandon is a 72-year-old male with a history of Parkinson's and dementia, who apparently came into the hospital on the with abdominal discomfort. He had been off of his Parkinson's medications for a period of time. He is not able to give any history. He grimaces to physical stimuli presently. He had a cholecystectomy performed on the per Dr. Vasquez. He apparently went into rapid atrial fibrillation this morning. He has no previous cardiac history that we are aware of. PAST MEDICAL HISTORY: Consistent for Parkinson's with apparent associated confusion/dementia/hallucinations. History of inguinal hernia repair. History of arthritis. SOCIAL HISTORY: No current alcohol or tobacco. He is . FAMILY HISTORY: Unable to be obtained secondary to the patient's current confusion. REVIEW OF SYSTEMS: Unable to be obtained secondary to the patient's current confusion. CURRENT PHYSICAL EXAMINATION: Vital signs: He is currently afebrile but had a T-max of 101.1 degrees yesterday at 12 and a temperature of 102.8 degrees on the . Heart rate currently is in the 120s, blood pressure 108/68. General: He is in no acute distress. He grimaces to physical stimuli. HEENT: Oropharynx is moist. Normal dentition. Eye examination shows pink conjunctivae. White sclerae. Neck: Shows no obvious thyromegaly or thyroid tenderness. Cardiovascular: He sounds to be in a tachycardic and irregular rhythm. He has no obvious murmurs. He has no S3. He has no lower extremity edema. He has warm and well perfused lower extremities. Chest: Sounds clear to auscultation bilaterally. He does not cooperate with the examiner. He has no increased work of breathing. Abdomen: Tender diffusely to palpation. He has laparoscopic incisions noted. No bowel sounds were heard. He has an NG tube in place. Skin: Warm and dry throughout. Neurological: He does not follow commands. He grimaces to physical stimuli. PERTINENT DATA: He had an echocardiogram performed earlier this hospitalization on the with an EF of 65 to 70 percent, mild TR. Aortic valve appeared normal. Mitral valve appeared normal. PA pressure in the low to mid 30s. Right ventricle appeared normal. His EKG this morning reviewed by me demonstrates rapid atrial fibrillation, rate of 141 beats per minute. His white count is 8.2, his hematocrit is 36, his platelet count is 143,000. His sodium is 147, potassium is 3.9, his BUN is 41, creatinine is 1.6 which appears to be elevated from presentation which was 25 and 1.3. His LDL earlier in the hospitalization was 67. His TSH and free T4 were normal. ASSESSMENT: Mr. Brandon is a 72-year-old gentleman with Parkinson's/dementia who came in with what sounds like acute cholecystitis. Presently, he is in rapid atrial fibrillation. PLAN: He is on aspirin daily which I am not clear of his strict indication as it does not seem that he has previously known heart disease. We will likely switch him to treatment dose Lovenox at this time. He has a diltiazem infusion ordered and I will add p.r.n. metoprolol to try to achieve rate control of less than 120. An echocardiogram and TSH have already been performed which were relatively normal. cc: Javed Weston MD
[2018-06-11] MEDS: PATIENT'S OWN MED PO SCH ×6 (09:50→21:03)
[2018-06-11] MEDS: FOLIC ACID 1 MG in NS 50 ML IV SCH (09:50)
[2018-06-11] MEDS: LOVENOX SUBQ SCH ×2 (09:51→22:33)
[2018-06-11 10:14] LABS: CK-MB 3.98 ng/mL (0.0-5.0)
--- NOTE | 2018-06-11 10:29 | PROGRESS NOTE ---
DATE: 06/11/2018 SUBJECTIVE: He is still confused but awake, and appears to be a little more comfortable. He underwent laparoscopic cholecystectomy yesterday. OBJECTIVE: Temperature 98.3 degrees, pulse 133, respirations 32, and blood pressure 90/67. I think he went into atrial fibrillation early this morning with a rapid ventricular rate. I started him on Cardizem. Pupils are equal and round. Lungs are clear in all lung [place]. Cardiovascular exam with regular rhythm and rate without murmur or S3. Abdomen is soft. No pedal edema. Urine output is 1500 mL. ASSESSMENT AND PLAN: 1. Paroxysmal atrial fibrillation with rapid rate. He is on Cardizem at this time postop. He had a laparoscopic cholecystectomy yesterday for acute cholecystitis. 2. History of Parkinson's disease. We are trying to get him back on his baseline medicine. 3. Suspect underlying dementia. I have looked at his medications and list. The patient on vancomycin 1800 mg daily and Zosyn 3.375 g IV q.6. 4. A list of his medicines, he is back on amantadine 100 mg b.i.d. He is on Seroquel 200 mg at bedtime, vancomycin 1800 mg IV q.36, Zosyn 3.375 g IV q.6, and Protonix 40 mg IV q.12. cc: Gino Kaye MD
[2018-06-11] MEDS: TYLENOL PO PRN (12:03)
--- NOTE | 2018-06-11 12:54 | EKG Report ---
Test Performed on : 06/11/2018 07:25:57 AM Test Reason : AFIB Blood Pressure : / mmHG Vent. Rate : 141 BPM Atrial Rate : 141 BPM P-R Int : 000 ms QRS Dur : 094 ms QT Int : 282 ms P-R-T Axes : 000 -02 140 degrees QTc Int : 431 ms Atrial fibrillation. with rapid ventricular response. Minimal voltage criteria for LVH, may be normal variant Inferior infarct (cited on or before 09-JUN-2018) Abnormal ECG When compared with ECG of 11-JUN-2018 07:25, (Unconfirmed) No significant change was found Confirmed by Jesús CLINTON, Mack ([id number]) on 06/12/2018 8:35:14 AM
[2018-06-11] MEDS: ARICEPT PO SCH (21:03)
[2018-06-11] MEDS: SEROQUEL PO SCH (21:04)
[2018-06-11] MEDS: VANCOMYCIN 1,800 MG in NS 500 ML IV SCH (22:33)
[2018-06-11] MEDS ORDERED: NEO-SYNEPHRINE 50 MG in NS 250 ML IV SCH (23:00)
[2018-06-12] MEDS: SODIUM CHLORIDE 0.9% INJ SCH (03:03)
[2018-06-12] MEDS: PROTONIX IV SCH ×2 (03:03→13:40)
[2018-06-12] MEDS: ZOSYN 3.375 GM in NS 50 ML IV SCH ×4 (03:03→21:25)
[2018-06-12] MEDS: XOPENEX NEB INH SCH ×6 (03:30→23:31)
[2018-06-12] MEDS: MORPHINE IV PRN ×3 (03:30→18:06)
[2018-06-12] MEDS: ATROVENT NEB INH SCH ×6 (03:30→23:32)
[2018-06-12 05:12] LABS: BASO# 0.02 X1000 (0.0-0.2); BASO% 0.2 % (0.0-0.8); EOS# 0.14 X1000 (0.0-0.7); EOS% 1.5 % (0.0-10.0); HEMATOCRIT 34.3 % (42.0-52.0); HEMOGLOBIN 11.1 g/dL (14.0-18.0); IMM GRAN# 0.02 X1000 (0.0-0.04); IMM GRAN% 0.2 % (0.0-0.5); LYMPH# 0.38 X1000 (1.2-3.4); LYMPH% 4.1 % (20.5-51.1); MCH 28.5 PG (27-31); MCHC 32.4 g/dL (33-37); MCV 88.2 FL (81-99); MONO# 0.39 X1000 (0.11-0.59); MONO% 4.3 % (1.7-9.3); MPV 11.6 FL (7.4-10.4); NEUT# 8.22 X1000 (1.4-6.5); NEUT% 89.7 % (42.2-75.2); PLT 161 X1000 (130-400); RBC 3.89 XMIL (4.7-6.1); RDW 14.4 % (11.5-14.5); WBC 9.17 X1000 (4.8-10.8)
[2018-06-12 05:24] LABS: CALCIUM 8.1 mg/dL (8.8-10.2); CREATININE 1.3 mg/dL (0.7-1.2); POTASSIUM 3.5 mmol/L (3.5-5.1)
[2018-06-12] MEDS: SYMMETREL PO SCH ×2 (08:25→21:25)
[2018-06-12] MEDS: PATIENT'S OWN MED PO SCH ×6 (08:26→21:25)
[2018-06-12] MEDS: CYANOCOBALAMIN IM SCH (08:28)
[2018-06-12] MEDS: D5 1/2 NS + KCL 20 MEQ 1,000 ML IV SCH ×2 (08:47→21:27)
[2018-06-12] MEDS: FOLIC ACID 1 MG in NS 50 ML IV SCH (09:58)
[2018-06-12] MEDS: LOVENOX SUBQ SCH ×2 (09:58→21:27)
--- NOTE | 2018-06-12 10:11 | PROGRESS NOTE ---
DATE: 06/12/2018 SUBJECTIVE: Mr. Brandon appears much more comfortable. He is opening his eyes. He seems to be engaging, and even has spoken to his some, so much more comfortable. OBJECTIVE: Vital Signs: Temperature 98.8 degrees, pulse 100, respirations 20, blood pressure 86/68. Eyes: Pupils are equal and round. Neck: No distended neck veins. He does kind of have general swelling, nonpitting, in his arms and legs. Lungs: Clear anterolateral. Cardiovascular exam: Regular rhythm and rate without murmur or S3. Abdomen: Soft. Skin: Skin is warm and dry. : Urine output is 1500 mL. X-RAYS: He had an EKG this morning; appears to be sinus rhythm. Rate was 100. ASSESSMENT AND PLAN: 1. Paroxysmal atrial fibrillation with rapid rate. He is getting Cardizem. 2. Status post laparoscopic cholecystectomy for cholecystitis. Looks much better, much more comfortable. 3. History of Parkinson disease. Try and get him back on his baseline maintenance medication, which he has not had in several days. 4. Suspect underlying dementia or cognitive decline. We will continue his Zosyn and vancomycin. He is getting D 5 one-half normal at 85 mL an hour, and it appears that he is back in normal sinus rhythm. He is getting vancomycin 1800 mg intravenous every 36 hours, Zosyn 3.375 gram intravenous every 6 hours, Aricept 10 mg at bedtime, Seroquel 200 mg at bedtime, amantadine 100 mg twice daily, vitamin B 12 1000 mcg daily. He did have low B 12 on admission. Folic acid 1 mg intravenous daily. LABORATORY DATA: Review of his lab from today: White count 9170, hematocrit 34, platelet count 161,000. Chemistries unremarkable. Creatinine is down to 1.3. cc: Gino Kaye MD
--- NOTE | 2018-06-12 10:21 | GENERAL SURGERY PROGRESS NOTE ---
DATE: 06/12/2018 SUBJECTIVE: The patient was noted to have atrial fibrillation yesterday. He was started on Cardizem drip and metoprolol. The rate did improve. However, he remains in atrial fibrillation. He did have some hypotension yesterday evening. This has improved as of this morning. He currently is off his Cardizem drip because his rate had actually gone quite low. From a mental standpoint, he did wake up some and follow commands and interact a little bit yesterday evening. However, this morning that does not seem to be the case. OBJECTIVE: Vital signs: He is afebrile, pulse 103, respirations 22, blood pressure 94/74, O2 saturation 97%. NG tube output is scant. Urine output 900 mL. MARCELA drain 5 mL, no bile. General: He is somnolent but arousable. He does follow basic commands but very little movement or interaction. Cardiovascular: Tachycardic and irregular. Respiratory: Bilateral breath sounds. No work of breathing. No rales appreciated. Gastrointestinal: Soft, somewhat distended. Hypoactive bowel sounds. He is diffusely tender. MARCELA drain again has old bloody drainage. No bile seen. LABORATORY DATA: White blood cell count 9, hemoglobin 11, hematocrit 34, platelet count 161,000. Electrolytes reviewed and notable for BUN 37, creatinine 1.3, carbon dioxide 19. IMAGING: None today. MICROBIOLOGY: He has 2/2 positive blood cultures, one of which is growing E coli. ASSESSMENT AND PLAN: A 72-year-old male with Escherichia coli bacteremia, peritonitis and he is now status post laparoscopic cholecystectomy and drainage of the bilious ascites. He had atrial fibrillation. His rate is now controlled. We will continue Cardizem as needed per Cardiology, Lovenox for prophylaxis, Zosyn and ICU care. He is not getting any nutrition at this time and we will need to consider starting IV nutrition if he does not turn the corner from a mental standpoint and bowel function standpoint this weekend. cc: Les Vasquez MD
--- NOTE | 2018-06-12 14:20 | GASTROENTEROLOGY PROGRESS NOTE ---
DATE: 06/12/2018 SUBJECTIVE: The patient was resting with eyes closed. He did arouse. No acute distress. He has an NG tube in place. OBJECTIVE: Vital Signs: Temperature 98.3 degrees, pulse 101, respirations 26, blood pressure 91/63. General: Patient was resting in no acute distress. HEENT: NG-tube in place. Abdomen: Soft. Laparoscopic incisions are dry and intact. Drain noted with a small amount of bloody drainage in MARCELA. LABORATORY DATA: Hematology: WBC 9.17, hemoglobin 11.1, hematocrit 34.3, MCV 88.2, platelet 161,000. Chemistry: Sodium 144, potassium 3.5, chloride 115, CO2 19, BUN 37, creatinine 1.3, glucose 156. ASSESSMENT AND PLAN: 1. Status post laparoscopic cholecystectomy for cholecystitis. Patient has a NG tube in place and MARCELA drain in place. 2. History of Parkinson disease. He has had to go several days without his medication and his states he gets altered mental status when not getting his routine medicines. I believe they have been restarted per NG tube. 3. Atrial fibrillation, on medication. PLAN: Continue supportive care. Depending on patient's progress, once he is able to start eating, if he continues to have problems with constipation, laxative would need to be started. GI will be available as needed. Please re-consult if needed. I have discussed this case with Dr. Osman. Dictated by RAFI Love for Anthony Osman MD cc: RAFI Ramires MD
--- NOTE | 2018-06-12 17:19 | CARDIOLOGY PROGRESS NOTE ---
DATE: 06/12/2018 SUBJECTIVE: Mr. Brandon reportedly has been doing better per family. They feel like he has been more clear and appropriate with conversation. OBJECTIVE: Vital Signs: He was febrile to 101.4, last time being at 12:02 p.m. yesterday. His heart rate currently is in the low 100s to 110s, blood pressure 113/79. General: No acute distress. Cardiovascular: He sounds to be in irregularly irregular mildly tachycardic rhythm. He has no murmurs. He has no lower extremity edema. No S3. Chest exam: Clear to auscultation bilaterally. He has no increased work of breathing. Abdomen: Minimal tenderness. NG tube is in place. I did not hear any bowel sounds. PERTINENT DATA: Sodium 144, potassium 3.5, BUN 37, creatinine is 1.3, white count is 9.1, hematocrit 34, platelet count is 161,000. ASSESSMENT: Mr. Brandon is a 72-year-old gentleman with Parkinson's/dementia who presents with acute cholecystitis found to be in rapid atrial fibrillation. PLAN: He had an echocardiogram earlier this hospitalization with a preserved ejection fraction. His TSH was normal. Currently we are pursuing a rate control option. He is on low-dose of IV diltiazem and has p.r.n. Lopressor ordered. In addition, he has weight based Lovenox. No acute recommendations presently as he seems to be rate controlled. cc: Javed Weston MD
[2018-06-12] MEDS: CARDIZEM 125 MG/D5W 125 MG/125 ML IVPB IV SCH (19:25)
[2018-06-12] MEDS: ARICEPT PO SCH (21:26)
[2018-06-12] MEDS: SEROQUEL PO SCH (21:26)
[2018-06-13] MEDS: ZOSYN 3.375 GM in NS 50 ML IV SCH ×4 (03:03→20:19)
[2018-06-13] MEDS: PROTONIX IV SCH ×2 (03:03→13:44)
[2018-06-13] MEDS: ATROVENT NEB INH SCH ×6 (03:39→22:54)
[2018-06-13] MEDS: XOPENEX NEB INH SCH ×6 (03:39→22:54)
[2018-06-13] MEDS: PATIENT'S OWN MED PO SCH ×6 (09:17→20:57)
[2018-06-13] MEDS: SYMMETREL PO SCH ×2 (09:18→20:19)
[2018-06-13] MEDS: LOVENOX SUBQ SCH ×3 (09:18→21:23)
[2018-06-13] MEDS: D5 1/2 NS + KCL 20 MEQ 1,000 ML IV SCH ×2 (09:33→20:20)
--- NOTE | 2018-06-13 09:51 | PROGRESS NOTE ---
DATE: 06/13/2018 SUBJECTIVE: Mr. Brandon is resting comfortably, sleeping and still breathing comfortably. Remains afebrile. OBJECTIVE: Vital signs: Temperature 97.8 degrees, pulse 90, respirations 20, blood pressure 98/65. HEENT: Pupils are equal and round. Lungs: Clear in all lung [place]. Cardiovascular: Regular rhythm and rate without murmur or S3. Abdomen: Soft. Extremities: No pedal edema. Genitourinary: His urine output was 1400 mL. ASSESSMENT AND PLAN: 1. Echocardiogram here in the hospital has preserved ejection fraction. His TSH was normal. On a low dose of diltiazem, atrial fibrillation rate is controlled. Lopressor has been ordered and he has weight-based Lovenox going on. 2. Status post laparoscopic cholecystectomy for cholecystitis. NG tube in place. MARCELA drain in place. Seems to be doing better, more comfortable. 3. History of Parkinson disease. He had gone several days without his medications so we are trying to get him back on his normal medications with the NG tube. 4. Underlying dementia and some cognitive decline suspected. Patient presented with delirium which is multifactorial. This is much better. LABORATORY DATA: Labs from yesterday, hematocrit 34, hemoglobin 11. Electrolytes look good. Creatinine down to 1.3. Sodium 144, potassium 3.5, chloride 115, BUN 37, creatinine 1.3. REVIEW OF ORDERS: He is on Aricept 10 mg at bedtime, Seroquel 200 mg at bedtime, Tylenol 650 per rectum q.4 hours p.r.n., amantadine 100 mg b.i.d., Lovenox 100 mg subcutaneous q.12, folic acid 1 mg q.12, ipratropium bromide inhalation 0.5 mg q.4 hours p.r.n., Protonix 40 mg IV q.12, vancomycin 1800 mg q.36, and Zosyn 3.375 g q.6 hours. His blood cultures are pending. He did have 1 that grew out E coli which is sensitive to Zosyn. cc: Gino Kaye MD
[2018-06-13] MEDS: FOLIC ACID 1 MG in NS 50 ML IV SCH (10:14)
[2018-06-13] MEDS ORDERED: VANCOMYCIN 2,100 MG in NS 500 ML IV SCH (11:00)
[2018-06-13] MEDS: MORPHINE IV PRN (11:01)
[2018-06-13] MEDS: CARDIZEM 125 MG/D5W 125 MG/125 ML IVPB IV SCH (14:30)
[2018-06-13] MEDS: HALDOL IV PRN ×2 (15:23→20:16)
[2018-06-13] MEDS: ARICEPT PO SCH (20:19)
[2018-06-13] MEDS: SEROQUEL PO SCH (20:19)
[2018-06-14] MEDS: PROTONIX IV SCH ×2 (02:33→14:15)
[2018-06-14] MEDS: ZOSYN 3.375 GM in NS 50 ML IV SCH ×4 (02:33→21:18)
[2018-06-14] MEDS: CARDIZEM 125 MG/D5W 125 MG/125 ML IVPB IV SCH ×2 (04:00→17:14)
[2018-06-14] MEDS: ATROVENT NEB INH SCH ×6 (04:07→23:04)
[2018-06-14] MEDS: XOPENEX NEB INH SCH ×6 (04:08→23:03)
--- NOTE | 2018-06-14 07:48 | PROGRESS NOTE ---
DATE: 06/14/2018 SUBJECTIVE: Mr. Brandon was resting comfortably. Sleeping good. Breathing easily. OBJECTIVE: Vital Signs: Temperature 98.6 degrees, pulse 89, respirations 29, blood pressure 93/72. Blood pressures have ranged between 93 and 111 over 51 to 74. HEENT: Pupils are equal and round. Lungs: Clear in all lung [place]. Cardiovascular: Regular rhythm and rate without murmur or S3. Abdomen: Soft. Skin: Warm and dry. ASSESSMENT AND PLAN: 1. Echocardiogram showed preserved ejection fraction. He is still in atrial fibrillation. Rate is controlled. 2. Status post laparoscopic cholecystectomy for cholecystitis. Seems to be doing well. 3. History of Parkinson disease. Waking up. Seems to be a little more appropriate and alert. Resting comfortably right now. Back on his Parkinson's medication. 4. Underlying dementia, aware. REVIEW OF LAB: I do not see any change. Creatinine has come down to 1.3. REVIEW OF HIS ORDERS: Aricept 10 mg at bedtime, Seroquel 200 mg at bedtime, Symmetrel 100 mg b.i.d., he is on diltiazem drip, folic acid 1 mg every 24 hours, vancomycin 2100 mg IV q.24 h., Zosyn 3.375 g q.6 h. Note that his micro, the blood culture grew out E. coli which was sensitive to ampicillin and cefazolin. cc: Gino Kaye MD
[2018-06-14] MEDS: PATIENT'S OWN MED PO SCH ×6 (09:06→21:19)
[2018-06-14] MEDS: D5 1/2 NS + KCL 20 MEQ 1,000 ML IV SCH ×2 (09:07→21:19)
[2018-06-14] MEDS: LOVENOX SUBQ SCH ×2 (09:07→21:19)
[2018-06-14] MEDS: SYMMETREL PO SCH ×2 (09:07→21:19)
[2018-06-14] MEDS: FOLIC ACID 1 MG in NS 50 ML IV SCH (10:15)
[2018-06-14] MEDS: MORPHINE IV PRN (14:31)
[2018-06-14] MEDS ORDERED: DULCOLAX PR ONE (15:18)
--- NOTE | 2018-06-14 15:53 | GENERAL SURGERY PROGRESS NOTE ---
DATE: 06/14/2018 SUBJECTIVE: Overall about the same. Drain is clear. Abdomen is distended. He has got NG tube in place. It is bilious. Pulse been the 90s, systolic blood pressure 120s. He has general slowing, weakness. No new labs this morning. ASSESSMENT AND PLAN: A 72-year-old gentleman with status post cholecystectomy with Parkinson's, patient of Dr. Vasquez's, multiple ongoing medical issues. From a GI standpoint will give him a Dulcolax suppository, do think he has a bit of an ileus and hopefully with resumption of bowel function we can discontinue his NG tube. cc: Sharon Roy MD MTDD
[2018-06-14 15:58] LABS: ALLEN TEST YES; BE -2.2 mmoll (-3.0-3.0); BLOOD TYPE ARTERIAL; HCO3-(ACT) 23.1 mmoll (20.0-26.0); METHB 1.2 % (0.0-1.5); O2(CT) 15.6 mL/dL (15.0-23.0); PCO2(98.6) 30 mmHg (35-45); PO2(98.6) 64 mmHg (60-100); SAMPLE BLOOD; SAO2 95.6 % (95.0-100.0); THB 11.9 g/dL (11.5-17.4); pH(98.6) 7.45 (7.35-7.45)
[2018-06-14 15:59] LABS: MODALITY CANNULA
--- NOTE | 2018-06-14 16:10 | Diag Imaging Result Doc PS360 ---
EXAM: CHEST-PORTABLE HISTORY: sob TECHNIQUE: Portable chest single view COMPARISON: 06/10/2018 FINDINGS: Poor inspiratory effort. A nasogastric tube overlies the esophagus and stomach. There are increased interstitial markings throughout both lungs. No pleural effusions identified. IMPRESSION: Poor inspiratory effort with bilateral infiltrates/pulmonary edema Electronically signed by Jm Mondragon 06/14/2018 4:07 PM
[2018-06-14] MEDS ORDERED: LASIX IV ONE (16:41)
[2018-06-14] MEDS: ADVAIR 250/50 DISKUS INH SCH (19:46)
[2018-06-14] MEDS: SEROQUEL PO SCH (21:19)
[2018-06-14] MEDS: ARICEPT PO SCH (21:19)
[2018-06-15] MEDS: ZOSYN 3.375 GM in NS 50 ML IV SCH ×4 (02:17→19:55)
[2018-06-15] MEDS: PROTONIX IV SCH ×2 (02:18→13:19)
[2018-06-15] MEDS: ATROVENT NEB INH SCH ×6 (03:08→23:30)
[2018-06-15] MEDS: XOPENEX NEB INH SCH ×6 (03:08→23:30)
[2018-06-15] MEDS: CARDIZEM 125 MG/D5W 125 MG/125 ML IVPB IV SCH ×2 (04:43→16:51)
[2018-06-15] MEDS: D5 1/2 NS + KCL 20 MEQ 1,000 ML IV SCH ×3 (08:23→23:18)
[2018-06-15] MEDS: SYMMETREL PO SCH ×2 (08:23→20:25)
[2018-06-15] MEDS: PATIENT'S OWN MED PO SCH ×6 (08:23→20:25)
[2018-06-15] MEDS: ADVAIR 250/50 DISKUS INH SCH (08:33)
[2018-06-15 09:21] LABS: HEMATOCRIT 38.3 % (42.0-52.0); HEMOGLOBIN 12.3 g/dL (14.0-18.0); MCH 28.7 PG (27-31); MCHC 32.1 g/dL (33-37); MCV 89.5 FL (81-99); MPV 10.9 FL (7.4-10.4); RBC 4.28 XMIL (4.7-6.1); RDW 14.9 % (11.5-14.5); WBC 5.96 X1000 (4.8-10.8)
[2018-06-15 09:39] LABS: CALCIUM 8.3 mg/dL (8.8-10.2); CREATININE 1.2 mg/dL (0.7-1.2); POTASSIUM 4.3 mmol/L (3.5-5.1)
[2018-06-15] MEDS: FOLIC ACID 1 MG in NS 50 ML IV SCH (09:46)
[2018-06-15] MEDS: LOVENOX SUBQ SCH ×2 (09:46→21:23)
[2018-06-15] MEDS: LASIX IV SCH ×2 (09:46→20:26)
--- NOTE | 2018-06-15 09:50 | PROGRESS NOTE ---
DATE: 06/15/2018 SUBJECTIVE: Mr. Brandon still has a good deal of wheezing. He is awake. He is alert, seems to be oriented. OBJECTIVE: Vital Signs: Temp 97.6 degrees, pulse 82, respirations 24. HEENT: Pupils are equal round. Lungs: Clear in all lung [place]. Cardiovascular: Regular rate without murmur or S3. Abdomen: Soft, nondistended. Positive bowel sounds. Extremities: No pedal edema. Urine output was 3600 mL. DIAGNOSTIC DATA: Chest x-ray from this morning: Poor inspiratory effort, bilateral infiltrates, and pulmonary edema. ASSESSMENT AND PLAN: 1. Status post cholecystectomy, cholecystitis. Seems to be doing well from that standpoint. 2. Echocardiogram shows normal left ventricular ejection fraction. He is in atrial fibrillation and trying to control rate. 3. History of parkinsonism. 4. History of some cognitive decline. 5. Still some pulmonary edema and some wheezing. His labs actually looks pretty good. From the , creatinine was 1.3. We will check some more labs today. I am going to put him back on Lasix 40 mg q.12. I discussed this. Electrolytes look good. I think we need to diurese a little more fluid. I think he had some third-spacing following his surgery and we should be safe to do that with his normal left ventricular function. cc: Gino Kaye MD
[2018-06-15 09:51] LABS: MAGNESIUM 2.2 mg/dL (1.5-2.7); PHOSPHORUS 2.9 mg/dL (2.7-4.5)
--- NOTE | 2018-06-15 14:17 | GASTROENTEROLOGY PROGRESS NOTE ---
DATE: 06/15/2018 SUBJECTIVE: Patient aroused easily. He is in no acute distress. His main complaint was complaining of right ear pain. His was at the bedside. At this time, he is more alert than he was last Friday when seen. He continues to have NG tube in place. He did receive a Dulcolax suppository yesterday, and per and nurse's report, he had a large bowel movement this morning. OBJECTIVE: Vital Signs: Temperature 98.9 degrees, pulse 82, respirations 18, blood pressure 94/69. Generally, patient is awake. He is in no acute distress. Abdomen is soft. He has laparoscopic incisions intact. A MARCELA drain to right quadrant. LABORATORY: Hematology: WBC 5.96, hemoglobin 12.3, hematocrit 38.3, MCV 89.5, platelets 225,000. Chemistry: Sodium 144, potassium 4.3, chloride 112, CO2 OF 24, BUN 27, creatinine 1.2, glucose 116. ASSESSMENT AND PLAN: 1. Status post cholecystectomy secondary to cholecystitis. Continue current management. 2. Constipation. Patient received a Dulcolax suppository and had a large bowel movement this morning. We will continue to follow. Once he is taking oral medication, he will most likely need to take a laxative daily until his symptoms improve. 3. History of Parkinson's disease. Patient is more alert per 's report. She is at the bedside. We will continue to follow. Further plans will be made according to his progress. I have discussed this case with Dr. Osman. Dictated by RAFI Love for Anthony Osman MD cc: RAFI Ramires MD
--- NOTE | 2018-06-15 17:45 | GENERAL SURGERY PROGRESS NOTE ---
DATE: 06/15/2018 SUBJECTIVE: The patient is feeling a little better. He is more interactive now over the weekend. He has not had any fevers. He has been tolerating some ice chips. His NG tube has remained clamped. He has had a bowel movement. He does remain on a Cardizem drip for atrial fibrillation. OBJECTIVE: Vital signs: He is afebrile. Pulse 80s to 90s and regular. Respirations: Nonlabored. Gastrointestinal: Soft, mildly tender, nondistended. MARCELA drain nonbilious. Incisions clean, dry, and intact. LABORATORY: White blood cell count 5.9, hemoglobin 12, hematocrit 38. Electrolytes reviewed and unremarkable. IMAGING: A chest x-ray yesterday showed poor inspiratory effort. No worse bilateral infiltrates or pulmonary edema. ASSESSMENT AND PLAN: A 72-year-old male status post laparoscopic cholecystectomy for acute cholecystitis. He also had bilious peritonitis and Escherichia coli bacteremia. He also went into atrial fibrillation, and he remains on a Cardizem drip for that. He remains on Zosyn for the peritonitis and bacteremia. I will repeat the blood cultures today to see if that is cleared. It appears his bowel function is improving. We will let him try a clear liquid diet and see if he can swallow his pills and then remove the tube if so and advance his diet as tolerated. We will continue physical therapy. He is still very weak and deconditioned and not able to get out of bed yet. cc: Les Vasquez MD
[2018-06-15] MEDS: ARICEPT PO SCH (20:25)
[2018-06-15] MEDS: SEROQUEL PO SCH (20:25)
[2018-06-16] MEDS: HALDOL IV PRN ×2 (01:53→22:35)
[2018-06-16] MEDS ORDERED: NS 50 ML ONE (02:53)
[2018-06-16] MEDS: SODIUM CHLORIDE 0.9% INJ SCH (03:15)
[2018-06-16] MEDS: PROTONIX IV SCH ×2 (03:15→14:19)
[2018-06-16] MEDS: ZOSYN 3.375 GM in NS 50 ML IV SCH ×4 (03:21→19:47)
[2018-06-16] MEDS: ATROVENT NEB INH SCH ×6 (03:30→23:30)
[2018-06-16] MEDS: XOPENEX NEB INH SCH ×6 (03:30→23:30)
[2018-06-16] MEDS: ADVAIR 250/50 DISKUS INH SCH ×3 (06:55→19:30)
[2018-06-16 07:04] LABS: MCH 29.2 PG (27-31); MCHC 32.4 g/dL (33-37); MPV 10.9 FL (7.4-10.4); RBC 4.11 XMIL (4.7-6.1); RDW 14.7 % (11.5-14.5); WBC 5.53 X1000 (4.8-10.8)
[2018-06-16 07:27] LABS: AGAP 10; BUN 25 mg/dL (8-22); CALCIUM 8.3 mg/dL (8.8-10.2); CHLORIDE 107 mmol/L (98-107); COSMO 290; CREATININE 1.1 mg/dL (0.7-1.2); ESTIMATED GFR > 60; GLUCOSE 116 mg/dL (70-104); POTASSIUM 3.9 mmol/L (3.5-5.1); SODIUM 143 mmol/L (136-145); TCO2 26 mmol/L (25-35)
[2018-06-16] MEDS: LASIX IV SCH ×2 (08:36→20:34)
[2018-06-16] MEDS: PATIENT'S OWN MED PO SCH ×6 (08:37→20:33)
[2018-06-16] MEDS: SYMMETREL PO SCH ×2 (08:37→20:34)
[2018-06-16] MEDS: D5 1/2 NS + KCL 20 MEQ 1,000 ML IV SCH ×2 (08:37→22:34)
[2018-06-16] MEDS: CARDIZEM 125 MG/D5W 125 MG/125 ML IVPB IV SCH (09:43)
[2018-06-16] MEDS: FOLIC ACID 1 MG in NS 50 ML IV SCH (09:43)
[2018-06-16] MEDS: LOVENOX SUBQ SCH ×2 (09:44→22:35)
--- NOTE | 2018-06-16 14:15 | GASTROENTEROLOGY PROGRESS NOTE ---
DATE: 06/16/2018 SUBJECTIVE: Patient was resting with eyes closed in no acute distress. His was at the bedside. His NG tube has been removed. He did have a large bowel movement yesterday. His states he is tolerating a full liquid diet. OBJECTIVE: Vital Signs: Temperature 97.7 degrees, pulse 83, respirations 21, blood pressure 88/65. General: Patient was asleep in no acute distress. LABORATORY: Hematology: WBC 5.53 hemoglobin 12.0, hematocrit 37.0, MCV 90.0, platelets 218,000. Chemistry: Sodium 143, potassium 3.9, chloride 107, CO2 26, BUN 25, creatinine 1.1, glucose 116. ASSESSMENT AND PLAN: 1. Status post cholecystectomy secondary to cholecystitis. 2. Constipation. Patient received a Dulcolax suppository and had a large bowel movement yesterday. 3. History of Parkinson's disease. Continue current management. 4. Gastroenterology will currently sign off and please reconsult us if needed. 5. I have discussed this case with Dr. Osman. Dictated by RAFI Love for Anthony Osman MD cc: RAFI Ramires MD [facility]
[2018-06-16] MEDS ORDERED: MAALOX PLUS LIQUID PO ONE (17:06)
--- NOTE | 2018-06-16 17:10 | GENERAL SURGERY PROGRESS NOTE ---
DATE: 06/16/2018 SUBJECTIVE: The patient has his body is hurting all over, he feels terrible, and he is only eating ice. However, reports from the staff are that he is drinking multiple liquids without any problems and overall is doing fairly well. OBJECTIVE: He is afebrile. Vital signs are stable. General: He is awake and alert, oriented x3. No acute distress. Respiratory: No work of breathing. CV appears to be a regular rate. GI is soft and nondistended, minimally tender. Incision is clean, dry, and intact. MARCELA drain with scant old bloody drainage. LABORATORY: White blood cell count 5.5, hemoglobin 12, hematocrit 37. Electrolytes reviewed and unremarkable. MICROBIOLOGY: His blood cultures were drawn yesterday and are pending. ASSESSMENT AND PLAN: A 72-year-old male status post laparoscopic cholecystectomy with bile peritonitis, bacteremia, and Parkinson's disease. He developed atrial fibrillation with rapid ventricular response perioperatively. Currently, he is starting to tolerate a liquid diet. We will advance him to soft food. He is working with Physical Therapy slowly, but making progress. His heart rate appears to be much improved. He is not having any fevers. I am going to plan to get the drain out within a day or so, and from my standpoint, he could be discharged to a regular room. cc: Les Vasquez MD
[2018-06-16] MEDS: SEROQUEL PO SCH (20:34)
[2018-06-16] MEDS: ARICEPT PO SCH (20:36)
--- NOTE | 2018-06-16 21:37 | PROGRESS NOTE ---
DATE: 06/16/2018 SUBJECTIVE: The patient is resting comfortably. His is present at the bedside. The patient does have some blisters along the dressing site on his abdomen. OBJECTIVE: Vital Signs: Temperature 99, blood pressure 111/83, heart rate 101, respirations 20, O2 sats 97% on 3 L nasal cannula. General: This is an elderly male lying in bed in no acute distress. Heart: S1, S2 normal. Tachycardic. Lungs: Equal air entry bilaterally. No crackles. No rales. Abdomen: Positive bowel sounds. Soft, nontender, nondistended. Extremities: No edema, no cyanosis. Neurologic: The patient is alert and oriented x 3. LABS: White blood cell count 5.5, hemoglobin 12, hematocrit 37, platelets 218,000. Sodium 143, potassium 3.9, chloride 107, CO2 26, BUN 25, creatinine 1.1, glucose 116. ASSESSMENT AND PLAN: 1. Status post laparoscopic cholecystectomy secondary to acute cholecystitis. Aware. 2. Peritonitis. Continue with antibiotic therapy. 3. Atrial fibrillation. The patient is on a Cardizem drip. Cardiology is following. 4. Parkinson disease. Continue on Staleva. 5. Bacteremia secondary to E coli. Continue with antibiotic therapy. Repeat blood cultures are currently pending. 6. GI prophylaxis. Continue on Protonix. 7. DVT prophylaxis. The patient is currently on full dose Lovenox. cc: Akiko Lucero MD
[2018-06-17] MEDS: XOPENEX NEB INH SCH ×6 (03:30→22:49)
[2018-06-17] MEDS: ATROVENT NEB INH SCH ×6 (03:30→22:49)
[2018-06-17] MEDS: ZOSYN 3.375 GM in NS 50 ML IV SCH ×4 (03:30→19:46)
[2018-06-17] MEDS: SODIUM CHLORIDE 0.9% INJ SCH (03:30)
[2018-06-17] MEDS: PROTONIX IV SCH (03:31)
[2018-06-17] MEDS: CARDIZEM 125 MG/D5W 125 MG/125 ML IVPB IV SCH (05:06)
[2018-06-17 07:34] LABS: BASO# 0.02 X1000 (0.0-0.2); BASO% 0.3 % (0.0-0.8); EOS# 0.09 X1000 (0.0-0.7); EOS% 1.6 % (0.0-10.0); HEMATOCRIT 38.5 % (42.0-52.0); HEMOGLOBIN 12.4 g/dL (14.0-18.0); IMM GRAN# 0.04 X1000 (0.0-0.04); IMM GRAN% 0.7 % (0.0-0.5); LYMPH# 0.52 X1000 (1.2-3.4); MCH 28.3 PG (27-31); MCHC 32.2 g/dL (33-37); MCV 87.9 FL (81-99); MONO# 0.37 X1000 (0.11-0.59); MONO% 6.4 % (1.7-9.3); MPV 11.5 FL (7.4-10.4); NEUT# 4.72 X1000 (1.4-6.5); PLT 256 X1000 (130-400); RBC 4.38 XMIL (4.7-6.1); RDW 14.6 % (11.5-14.5); WBC 5.76 X1000 (4.8-10.8)
[2018-06-17] MEDS: ADVAIR 250/50 DISKUS INH SCH ×2 (07:39→19:24)
[2018-06-17 07:47] LABS: CALCIUM 8.1 mg/dL (8.8-10.2); CREATININE 1.2 mg/dL (0.7-1.2); POTASSIUM 3.4 mmol/L (3.5-5.1)
[2018-06-17 07:48] LABS: ALB/GLOB RATIO 0.8; ALBUMIN 2.6 g/dL (3.5-5.0); DIRECT BILIRUBIN 0.2 mg/dL (0.00-0.20); TOTAL BILIRUBIN 0.55 mg/dL (0.20-1.00); TOTAL PROTEIN 5.9 g/dL (6.3-8.3)
[2018-06-17] MEDS: SYMMETREL PO SCH ×2 (08:17→20:28)
[2018-06-17] MEDS: PATIENT'S OWN MED PO SCH ×3 (08:18)
[2018-06-17] MEDS: LASIX IV SCH ×2 (08:21→22:08)
[2018-06-17] MEDS: KLOR-CON PO ONE ×2 (08:22→08:36)
[2018-06-17] MEDS ORDERED: POTASSIUM CHLORIDE 20 MEQ/SWI 20 MEQ/100 ML IVPB IV ONE (09:41)
[2018-06-17] MEDS: LOVENOX SUBQ SCH ×2 (10:26→22:08)
[2018-06-17] MEDS: PROTONIX PO SCH ×2 (10:26→22:09)
[2018-06-17] MEDS: FOLIC ACID 1 MG in NS 50 ML IV SCH (10:26)
--- NOTE | 2018-06-17 11:06 | CONSULTATION ---
DATE OF CONSULTATION: 06/17/2018 HISTORY: Mr. Brandon is 72 years old, and there is longstanding parkinsonism and cognitive impairment. He has neurology followup with Dr. Talbert in [place]. He had recent GI problems, and was admitted here just over a week ago. He was found to have acute cholecystitis, managed with laparoscopic cholecystectomy. He has done well from surgical standpoint. According to attentive at the bedside, he has had some periods of increased confusion and some restlessness in recent days. He has declined to take his medication doses at times. reports he presented with right arm rigidity and tremor more than 15 years ago. He has been taking medicine for Parkinson's disease since then. He has had cognitive impairment for more than 10 years and has been taking donepezil for about that time, according to . She does not recall memantine trial. She recalls periods of prominent confusion with agitation and possibly hallucinations at times in the past, and at least once, dramatically about 6 months ago, those problems were quickly improved with reduction in his Parkinson's medicines. At that time, he was taking Rytary and later resumed levodopa with Stalevo. Current regimen has not been changed much in recent months, according to . He has Stalevo 200 q.i.d., rasagiline 1 mg daily, amantadine 100 mg b.i.d., quetiapine 200 mg at bedtime, Nuplazid 20 mg daily with planning to increase to 30 mg soon, and donepezil 10 mg daily. Workup here includes lab showing recent chemistry mostly unremarkable, borderline low calcium, mildly elevated AST and alkaline phosphatase, nothing that generally would be associated with encephalopathy. He has not had brain imaging here. PHYSICAL EXAMINATION: On exam, Mr. Brandon is supine, awake, alert, and attentive. He followed some simple commands inconsistently. Tone is increased in the arms, a little more on the right with some cogwheeling bilaterally. I did not see resting tremor during my time at the bedside today. He has limited upgaze and good lateral eye movement. Facial motility is diminished bilaterally. I did not test his gait. He did well on [id number] testing bilaterally. He was oriented to [place], [place], but was not able to name the hospital or to tell me that this is a hospital . He named his correctly at the bedside. I did not test his cognitive function further. Head and neck are unremarkable. IMPRESSION: 1. Longstanding parkinsonism, likely idiopathic Parkinson disease with history that he had good response to dopaminergic medicines initially. 2. Long-standing history of cognitive impairment treated with donepezil chronically. 3. History of increased confusion and hallucination associated with medical illness in the past, at least once improved with reduction in dopaminergic medicines, according to . 4. Since he is in the hospital recovering, not up and active and has had hallucinations and confusion, I think it would be reasonable to reduce his Parkinson's medicines. I will empirically stop rasagiline and reduce Stalevo from 200 mg q.i.d. to carbidopa/levodopa 25/100 q.i.d. We can follow up on that dose short-term. We can increase Nuplazid and/or quetiapine later if needed, but I hope he will not require higher antipsychotic medication dose, and, if psychosis is not prominent, we might even try to manage with lower doses on those. Further plans will depend on his clinical course here. Eventually, he will be out of the hospital and resume outpatient followup with Dr. Talbert. Thanks for asking Neurology to see Mr. Brandon. cc: MD NEEL Herrera III
--- NOTE | 2018-06-17 12:44 | GENERAL SURGERY PROGRESS NOTE ---
DATE: 06/17/2018 SUBJECTIVE: The patient continues to make steady improvement. He is eating lunch currently. OBJECTIVE: He is afebrile. Vital signs are stable. General: He is awake, alert, oriented times at least 1. No acute distress. He is following commands. CV: Looks to be regular on the monitor. Respiratory: No work of breathing. GI: Soft. Minimal tenderness. Incision is clean, dry, and intact. MARCELA drain with old serosanguineous fluid. Laboratory: White blood cell count 5.7, hemoglobin 12, hematocrit 38. Electrolytes reviewed and unremarkable. His recent blood cultures from 06/15/2018 are now negative. ASSESSMENT AND PLAN: A 72-year-old male status post laparoscopic cholecystectomy for severe acute cholecystitis. He is making improvement. His diet has been advanced. He continues to work with physical therapy. However, he remains on a Cardizem drip. From my standpoint, he can be discharged to the CICU stepdown or regular floor at this point and hopefully, he can be converted over to oral rate-controlling medicines. We will continue to follow along. cc: Les Vasquez MD
--- NOTE | 2018-06-17 13:25 | CARDIOLOGY PROGRESS NOTE ---
DATE: 06/17/2018 SUBJECTIVE: Mr. Brandon reports that he is doing okay. He is speaking somewhat slowly. is present in the room. OBJECTIVE: He is afebrile. Heart rate is 76, his blood pressure is 126/76. Generally, he is in no acute distress. Cardiovascularly, he sounds to be in a regular rate and rhythm. Current telemetry shows sinus rhythm. He has no lower extremity edema. His chest exam sounds clear bilaterally. He has no increased work of breathing. His abdomen is soft, nontender, nondistended. He has no obvious organomegaly. PERTINENT DATA: Sodium is 140, potassium 3.4, BUN 24, creatinine is 1.2. ASSESSMENT: Mr. Brandon is a 72-year-old gentleman who has had issues with atrial fibrillation in the setting of acute cholecystitis. PLAN: Review of his telemetry shows periodic mild bradycardic episodes that do not seem to be symptomatic and per the nursing staff seem to correspond to oral intake. He could be having some excessive vagal stimulation with this. Presently, I would just discontinue the diltiazem and watch these for now. He is on weight-based Lovenox and prior to discharge likely needs to be swapped to oral Eliquis or Xarelto for anticoagulation with his atrial fibrillation. cc: Javed Weston MD MTDD
[2018-06-17] MEDS: SINEMET 25/100 PO SCH ×3 (13:31→20:28)
[2018-06-17] MEDS ORDERED: AYR NASAL SPRAY NAS PRN (14:24)
[2018-06-17] MEDS: D5 1/2 NS + KCL 20 MEQ 1,000 ML IV SCH (17:48)
--- NOTE | 2018-06-17 20:01 | PROGRESS NOTE ---
DATE: 06/17/2018 SUBJECTIVE: The patient was noted to be hallucinating and confused this morning, and very slow to answer questions. OBJECTIVE: Vital Signs: Temperature 98.6 degrees, blood pressure 129/79, heart rate 78, respirations 27, O2 saturation 96% on 2 L nasal cannula. General: This is a chronically ill- appearing, elderly male lying in bed in no acute distress. Heart: S1, S2 normal. Regular rate and rhythm. Lungs: Clear to auscultation bilaterally. Abdomen: Positive bowel sounds. Soft, nontender, nondistended. Extremities: No edema, no cyanosis. Neurologic: The patient is oriented to self. He does have periods of confusion and hallucinations. LABS: Sodium 140, potassium 3.4, chloride 102, CO2 27, BUN 24, creatinine 1.2, glucose 91, AST 47, ALT 8, alkaline phosphatase 123. ASSESSMENT AND PLAN: 1. Delirium with Parkinson disease. The patient has been seen by Dr. Mcgee and adjustments have been made to the patient's Parkinson medications. We will continue to monitor the patient closely for improvement. 2. Status post laparoscopic cholecystectomy, secondary to acute cholecystitis. Management as per the general surgeon. 3. Peritonitis, improved. The patient remains on antibiotic therapy. 4. Bacteremia secondary to Escherichia coli. So far, the repeat blood cultures are negative. Continue with antibiotic therapy.. 5. Atrial fibrillation. The patient had a period of bradycardia while taking his medications this morning. Continue to monitor on telemetry. Cardiology is following. 6. Gastrointestinal prophylaxis. Continue on Protonix. 7. Deep vein thrombosis prophylaxis. The patient is currently on full dose Lovenox. cc: MD NEEL Trimble
[2018-06-17] MEDS: ARICEPT PO SCH (20:27)
[2018-06-17] MEDS: SEROQUEL PO SCH (20:28)
[2018-06-17] MEDS: HALDOL IV PRN (22:01)
[2018-06-18] MEDS: ZOSYN 3.375 GM in NS 50 ML IV SCH ×2 (02:33→09:29)
[2018-06-18] MEDS: XOPENEX NEB INH SCH ×6 (03:25→23:29)
[2018-06-18] MEDS: ATROVENT NEB INH SCH ×6 (03:25→23:29)
[2018-06-18 06:06] LABS: BASO# 0.01 X1000 (0.0-0.2); BASO% 0.2 % (0.0-0.8); EOS# 0.09 X1000 (0.0-0.7); EOS% 1.6 % (0.0-10.0); HEMATOCRIT 40.5 % (42.0-52.0); HEMOGLOBIN 13.2 g/dL (14.0-18.0); IMM GRAN# 0.07 X1000 (0.0-0.04); IMM GRAN% 1.2 % (0.0-0.5); LYMPH# 0.34 X1000 (1.2-3.4); MCH 28.4 PG (27-31); MCHC 32.6 g/dL (33-37); MCV 87.1 FL (81-99); MONO# 0.33 X1000 (0.11-0.59); MONO% 5.8 % (1.7-9.3); MPV 10.8 FL (7.4-10.4); NEUT# 4.87 X1000 (1.4-6.5); NEUT% 85.2 % (42.2-75.2); PLT 282 X1000 (130-400); RBC 4.65 XMIL (4.7-6.1); RDW 14.4 % (11.5-14.5); WBC 5.71 X1000 (4.8-10.8)
[2018-06-18 06:18] LABS: CALCIUM 8.4 mg/dL (8.8-10.2); CREATININE 1.2 mg/dL (0.7-1.2); POTASSIUM 3.9 mmol/L (3.5-5.1)
[2018-06-18 06:32] LABS: MAGNESIUM 2.3 mg/dL (1.5-2.7); PHOSPHORUS 3.5 mg/dL (2.7-4.5)
[2018-06-18 06:45] LABS: LYMPHS 10 % (21-51); SEGS 90 % (42-75)
[2018-06-18] MEDS: ADVAIR 250/50 DISKUS INH SCH ×2 (08:54→19:20)
--- NOTE | 2018-06-18 09:22 | PROGRESS NOTE ---
DATE: 06/18/2018 Mr. Brandon is much brighter this morning. He remained alert and attentive during my time at the bedside. He followed simple commands consistently. Speech is easier to understand. He does not have resting tremor right now. Tone is increased but not remarkably different from yesterday. IMPRESSION: 1. Global encephalopathy. 2. Baseline cognitive impairment. 3. Parkinson's disease. 4. Hallucinations. He seems improved with lower dopaminergic medication load. I think we can continue to follow with current doses and hope he continues to improve. No new suggestion today. Thanks for asking neurology to see Mr. Brandon. cc: Rose Mcgee III, MD
[2018-06-18] MEDS: LASIX IV SCH ×2 (09:29→21:29)
[2018-06-18] MEDS: SYMMETREL PO SCH ×2 (09:29→21:49)
[2018-06-18] MEDS: SINEMET 25/100 PO SCH ×4 (09:29→21:51)
[2018-06-18] MEDS: PATIENT'S OWN MED PO SCH (09:41)
[2018-06-18] MEDS ORDERED: ROCEPHIN 1 GM in NS 50 ML IV ONE (10:46)
[2018-06-18] MEDS ORDERED: ROCEPHIN 1 GM in NS 50 ML IV SCH (11:00)
[2018-06-18] MEDS: LOVENOX SUBQ SCH ×2 (11:15→21:26)
[2018-06-18] MEDS: PROTONIX PO SCH ×2 (11:15→21:26)
[2018-06-18] MEDS: FOLIC ACID 1 MG in NS 50 ML IV SCH (11:16)
--- NOTE | 2018-06-18 13:05 | PROGRESS NOTE ---
DATE: 06/18/2018 SUBJECTIVE: The patient is awake. No acute events noted overnight. OBJECTIVE: Vital Signs: Temperature 98.6 degrees, blood pressure 124/74, heart rate 78, respirations 20, and O2 saturation 94% on 3 L nasal cannula. General: This is a chronically ill- appearing elderly male lying in bed in no acute distress. Heart: S1, S2 normal. Regular rate and rhythm. Lungs: Clear to auscultation bilaterally. No wheezing. No rales. No rhonchi. Abdomen: Positive bowel sounds. Soft, nontender, and nondistended. Extremities: No edema. No cyanosis. Neurologic: The patient is awake, but he does have periods of confusion. LABORATORY: White blood cell count 5.7, hemoglobin 13, hematocrit 40, and platelets 282,000. Sodium 140, potassium 3.9, chloride 101, CO2 26, BUN 29, creatinine 1.2, and glucose 102. ASSESSMENT AND PLAN: 1. Delirium with Parkinson's disease. Slightly improved today. Neurology is following. 2. Status post laparoscopic cholecystectomy secondary to acute cholecystitis. Stable. The patient is on a GI soft diet. 3. Peritonitis. Improved. The patient is on Zosyn. 4. Bacteremia secondary to Escherichia coli. The repeat blood cultures so far remain negative. Continue on Zosyn. 5. Atrial fibrillation. The patient is currently rate controlled. 6. Gastrointestinal prophylaxis. Continue on Protonix. 7. Deep vein thrombosis prophylaxis. The patient is currently on full dose Lovenox. 8. Disposition. The patient is stable for transfer to the medical floor on telemetry. cc: Akiko Lucero MD [facility]ENTER[facility]
--- NOTE | 2018-06-18 13:40 | GENERAL SURGERY PROGRESS NOTE ---
DATE: 06/18/2018 SUBJECTIVE: The patient says he is feeling better today. He did eat yesterday without nausea or vomiting. OBJECTIVE: He is afebrile. Vital signs are stable. Urine output 3900 mL. General: He is awake but still basically lies in bed with his eyes closed. He does follow simple commands and answered questions. CV: Regular rate and rhythm. Respiratory: No work of breathing. GI: Soft, nontender, nondistended. Incision is clean, dry, and intact. Laboratory: CBC and metabolic profile reviewed and unremarkable. ASSESSMENT AND PLAN: A 72-year-old male now recovering from acute cholecystitis with bile peritonitis and Escherichia coli bacteremia, and perioperative atrial fibrillation. He is status post laparoscopic cholecystectomy and drainage of the bile ascites. The drain has been removed. His blood cultures are now negative. His atrial fibrillation appears to be much improved. It is not resolved. His biggest difficulty right now is physical and cognitive impairment, given his prolonged illness and baseline severe Parkinson's disease. Dr. Mcgee is assisting with his oral medications for Parkinson's. Physical therapy is assisting with his strength and conditioning. We should continue his antibiotics for the Escherichia coli bacteremia. I think we should continue them for another 2 weeks from the date of his negative blood cultures on 06/15/2018. We will change him from Zosyn to Rocephin and continue that to complete his 14 day course. The Escherichia coli was sensitive to Ancef so Rocephin should be a good choice for that to treat that. We will also ask the runner worker to evaluate for rehab after his acute inpatient stay is finished. cc: Les Vasquez MD
[2018-06-18] MEDS: ARICEPT PO SCH (21:26)
[2018-06-18] MEDS: SEROQUEL PO SCH (21:49)
[2018-06-19] MEDS: D5 1/2 NS + KCL 20 MEQ 1,000 ML IV SCH (02:29)
[2018-06-19] MEDS: HALDOL IV PRN ×2 (02:33→23:11)
[2018-06-19] MEDS: XOPENEX NEB INH SCH ×6 (03:13→23:23)
[2018-06-19] MEDS: ATROVENT NEB INH SCH ×6 (03:13→23:23)
[2018-06-19 06:36] LABS: HEMATOCRIT 42.1 % (42.0-52.0); HEMOGLOBIN 13.6 g/dL (14.0-18.0); MCH 28.6 PG (27-31); MCHC 32.3 g/dL (33-37); MCV 88.4 FL (81-99); MPV 11.1 FL (7.4-10.4); RBC 4.76 XMIL (4.7-6.1); RDW 14.6 % (11.5-14.5); WBC 6.52 X1000 (4.8-10.8)
[2018-06-19 06:54] LABS: CALCIUM 8.7 mg/dL (8.8-10.2); CREATININE 1.3 mg/dL (0.7-1.2); POTASSIUM 3.5 mmol/L (3.5-5.1)
--- NOTE | 2018-06-19 07:17 | Diag Imaging Result Doc PS360 ---
EXAM: CHEST-PORTABLE 06/19/2018 HISTORY: dyspnea TECHNIQUE: AP portable at 0542 COMMENT: There is cardiomegaly. There are scattered granulomata in the left lower lung. There are calcified nodes in the left hilum. Compared to 06/14/2018 there has been some clearing of the pulmonary edema which was present previously. There appears to be some subsegmental atelectasis in the right base. IMPRESSION: Improved pulmonary edema. Right basilar atelectasis. Electronically signed by Jc Hutson 06/19/2018 7:14 AM
[2018-06-19] MEDS: ADVAIR 250/50 DISKUS INH SCH ×2 (08:04→19:40)
[2018-06-19] MEDS: LOVENOX SUBQ SCH ×2 (09:02→22:54)
[2018-06-19] MEDS: LASIX IV SCH ×2 (09:02→22:54)
[2018-06-19] MEDS: SYMMETREL PO SCH ×2 (09:02→22:54)
[2018-06-19] MEDS: PROTONIX PO SCH ×2 (09:02→22:53)
[2018-06-19] MEDS: SINEMET 25/100 PO SCH ×4 (09:02→22:54)
[2018-06-19] MEDS: FOLIC ACID 1 MG in NS 50 ML IV SCH (10:25)
[2018-06-19] MEDS: ROCEPHIN 1 GM in NS 50 ML IV SCH (13:47)
[2018-06-19] MEDS: PATIENT'S OWN MED PO SCH (14:27)
--- NOTE | 2018-06-19 14:41 | PROGRESS NOTE ---
DATE: 06/19/2018 SUBJECTIVE: The patient is resting comfortably in bed. He states that he did not sleep at all last night. OBJECTIVE: Vital Signs: Temperature 98.2 degrees, blood pressure 105/70, heart rate 70, respirations 20, O2 saturation 95% on 3 L nasal cannula, intake 1.4 L, and output 2.9 L. General: This is a chronically ill-appearing elderly male sitting up in bed in no acute distress. Heart: S1, S2 normal. Regular rate and rhythm. Lungs: Equal air entry bilaterally. No crackles. No rales. Abdomen: Positive bowel sounds. Soft, nontender, and nondistended. Extremities: No edema. No cyanosis. Neurologic: The patient is alert and oriented x3. LABORATORY: White blood cell count 6.5, hemoglobin 13, hematocrit 42, and platelets 296,000. Sodium 138, potassium 3.5, chloride 97, CO2 28, BUN 29, creatinine 1.3, and glucose 114. Chest x-ray shows improved pulmonary edema. Right basilar atelectasis. ASSESSMENT AND PLAN: 1. Parkinson's disease. Improved. Continue with the current treatment regimen as directed by Dr. Mcgee. 2. Status post laparoscopic cholecystectomy secondary to acute cholecystitis. Stable. 3. Bacteremia secondary to Escherichia coli. Continue on antibiotic therapy. 4. Peritonitis. Continue with antibiotic therapy. 5. Atrial fibrillation. Rate controlled. Will switch to xarelto. 6. Gastrointestinal prophylaxis. Continue on Protonix. 7. Disposition. Continue with PT. cc: kAiko Lucero MD MTDD
--- NOTE | 2018-06-19 14:59 | PROGRESS NOTE ---
DATE: 06/19/2018 Mr. Brandon continues awake, alert, and attentive. He answered questions appropriately, but sometimes incorrectly. He is little bit better oriented than yesterday. Speech remains a little bit feeble, but is not markedly parkinsonian right now. I did not observe resting tremor during my time at the bedside today. He still has some rigidity in the limbs. I have not observed him trying to walk. Discussed with family at the bedside. He seems improved with current medication regimen. I would continue these doses for now, and hope he can be discharged soon. He will need follow-up with Dr. Talbert in [place]. Thanks for asking Neurology to see Mr. Brandon. cc: MD NEEL Herrera III
--- NOTE | 2018-06-19 18:14 | PROGRESS NOTE ---
DATE: 06/19/2018 SUBJECTIVE: The patient reports having trouble sleeping last night. He was having hiccups. He is tolerating liquids and eating small amounts of food. He has not been able to mobilize out of bed yet. OBJECTIVE: Vital signs: He is afebrile. Vital signs are stable. General: He is awake and alert, no acute distress. Respiratory: No work of breathing. Cardiovascular: Regular rate and rhythm. Gastrointestinal: Soft, nontender, nondistended. Incision is clean, dry, and intact. LABORATORY DATA: CBC and metabolic profile reviewed and unremarkable. ASSESSMENT AND PLAN: A 72-year-old male status post laparoscopic cholecystectomy and drainage of bilious ascites. He is recovering from atrial fibrillation with rapid ventricular response, Escherichia coli bacteremia and severe deconditioning. We will continue his soft diet as tolerated, Rocephin for the bacteremia and dopaminergic medicines per Dr. Mcgee. Physical therapy and occupational therapy are working with him, and social group worker has been consulted for possible fdc facility or inpatient rehab. cc: Les Vasquez MD
[2018-06-19] MEDS: ARICEPT PO SCH (22:53)
[2018-06-19] MEDS: SEROQUEL PO SCH (22:54)
[2018-06-20] MEDS: XOPENEX NEB INH SCH ×6 (03:06→23:28)
[2018-06-20] MEDS: ATROVENT NEB INH SCH ×6 (03:06→23:28)
[2018-06-20 06:39] LABS: HEMATOCRIT 39.7 % (42.0-52.0); HEMOGLOBIN 13.1 g/dL (14.0-18.0); MCH 28.9 PG (27-31); MCV 87.4 FL (81-99); MPV 11.2 FL (7.4-10.4); RBC 4.54 XMIL (4.7-6.1); RDW 14.4 % (11.5-14.5); WBC 7.98 X1000 (4.8-10.8)
[2018-06-20 06:56] LABS: CALCIUM 8.3 mg/dL (8.8-10.2); CREATININE 1.3 mg/dL (0.7-1.2)
[2018-06-20] MEDS: ADVAIR 250/50 DISKUS INH SCH ×2 (07:41→19:32)
[2018-06-20] MEDS: D5 1/2 NS + KCL 20 MEQ 1,000 ML IV SCH (08:31)
[2018-06-20] MEDS ORDERED: SORBITOL PO ONE (09:05)
[2018-06-20] MEDS: LASIX IV SCH ×2 (09:28→21:51)
[2018-06-20] MEDS: SINEMET 25/100 PO SCH ×4 (09:28→21:50)
[2018-06-20] MEDS: PROTONIX PO SCH ×2 (09:29→21:50)
[2018-06-20] MEDS: XARELTO PO SCH ×2 (09:29→17:54)
[2018-06-20] MEDS: SYMMETREL PO SCH ×2 (09:29→21:50)
--- NOTE | 2018-06-20 09:57 | GENERAL SURGERY PROGRESS NOTE ---
DATE: 06/20/2018 SUBJECTIVE: The patient is doing okay. He ate a better breakfast this morning, most of his eggs and grits. OBJECTIVE: Vital Signs: He is afebrile. Vital signs are stable. General: He is awake, alert, in no acute distress. GI: Soft. Minimal tenderness. Nondistended. Incision is clean, dry, and intact. LABORATORY: CBC and basic metabolic profile reviewed and unremarkable. His BUN and creatinine continue to trend toward normal. ASSESSMENT AND PLAN: A 72-year-old male who is status post laparoscopic cholecystectomy for severe acute cholecystitis. He is recovering from perioperative atrial fibrillation and bacteremia. He has significant Parkinson disease and is very deconditioned and weak. His appetite has been poor. I am going to check a pre-albumin on him and monitor his oral intake over the weekend. If it does not improve, then we will need to initiate parental nutrition I am going to encourage him to drink Ensure shakes over the weekend and see how he does. cc: Les Vasquez MD
[2018-06-20] MEDS: PATIENT'S OWN MED PO SCH (09:58)
[2018-06-20] MEDS: COLACE PO SCH ×2 (09:58→21:50)
[2018-06-20] MEDS: DULCOLAX PR SCH (09:58)
[2018-06-20] MEDS: FOLIC ACID 1 MG in NS 50 ML IV SCH (11:33)
--- NOTE | 2018-06-20 11:41 | PROGRESS NOTE ---
DATE: 06/20/2018 SUBJECTIVE: The patient is resting in bed. He is still very weak and not able to sit up on his own without assistance. OBJECTIVE: Vital Signs: Temperature 98.9 degrees, blood pressure 108/77, heart rate 74, respirations 20, O2 saturations 98% on room air. General: This is a chronically ill-appearing elderly male, lying in bed in no acute distress. Heart: S1, S2 normal. Regular rate and rhythm. Lungs: Clear to auscultation bilaterally. Abdomen: Positive bowel sounds. Soft, nontender, nondistended. Extremities: No edema, no cyanosis. Neurologic: The patient is alert and oriented x3. LABORATORY DATA: Sodium 137, potassium 4, chloride 99, CO2 27, BUN 23, creatinine 1.3, glucose 101, calcium 8.3. ASSESSMENT AND PLAN: 1. Status post laparoscopic cholecystectomy secondary to acute cholecystitis. Stable. 2. Parkinson disease. Continue with the current treatment regimen as directed by Dr. Mcgee. 3. Bacteremia secondary to Escherichia coli. Continue on Rocephin. 4. Atrial fibrillation. The patient is now on Xarelto. 5. Peritonitis. The patient is on Rocephin. 6. Severe deconditioning. Physical Therapy and Occupational Therapy has been consulted. The patient will require inpatient rehab placement. 7. Disposition. Field Checker is working on inpatient rehab placement for the patient. cc: Akiko Lucero MD MTDD
[2018-06-20] MEDS: ROCEPHIN 1 GM in NS 50 ML IV SCH (13:53)
[2018-06-20] MEDS: SEROQUEL PO SCH (21:50)
[2018-06-20] MEDS: ARICEPT PO SCH (21:50)
[2018-06-20] MEDS: HALDOL IV PRN (22:04)
[2018-06-21] MEDS: ATROVENT NEB INH SCH ×6 (03:07→23:14)
[2018-06-21] MEDS: XOPENEX NEB INH SCH ×6 (03:07→23:14)
[2018-06-21 06:35] LABS: HEMATOCRIT 40.1 % (42.0-52.0); HEMOGLOBIN 13.1 g/dL (14.0-18.0); MCH 28.9 PG (27-31); MCHC 32.7 g/dL (33-37); MCV 88.5 FL (81-99); MPV 11.1 FL (7.4-10.4); RBC 4.53 XMIL (4.7-6.1); RDW 14.4 % (11.5-14.5); WBC 6.38 X1000 (4.8-10.8)
[2018-06-21] MEDS: ADVAIR 250/50 DISKUS INH SCH ×2 (07:25→20:50)
[2018-06-21 07:32] LABS: CALCIUM 8.7 mg/dL (8.8-10.2); CREATININE 1.3 mg/dL (0.7-1.2); POTASSIUM 3.6 mmol/L (3.5-5.1); PREALBUMIN 17.8 mg/dL (20-40)
[2018-06-21] MEDS: FOLIC ACID 1 MG in NS 50 ML IV SCH (09:11)
[2018-06-21] MEDS: D5 1/2 NS + KCL 20 MEQ 1,000 ML IV SCH (09:12)
[2018-06-21] MEDS: XARELTO PO SCH ×2 (09:15→17:04)
[2018-06-21] MEDS: PROTONIX PO SCH ×2 (09:15→21:00)
[2018-06-21] MEDS: LASIX IV SCH ×2 (09:15→20:41)
[2018-06-21] MEDS: SYMMETREL PO SCH ×2 (09:15→20:40)
[2018-06-21] MEDS: SINEMET 25/100 PO SCH ×4 (09:15→20:40)
[2018-06-21] MEDS: COLACE PO SCH ×2 (09:15→20:43)
[2018-06-21] MEDS: DULCOLAX PR SCH (09:27)
[2018-06-21] MEDS: PATIENT'S OWN MED PO SCH (09:32)
[2018-06-21] MEDS: ROCEPHIN 1 GM in NS 50 ML IV SCH (12:25)
--- NOTE | 2018-06-21 13:22 | PROGRESS NOTE ---
DATE: 06/21/2018 SUBJECTIVE: The patient is resting comfortably in bed. He has not been eating very much. OBJECTIVE: Vital Signs: Temperature 98 degrees, blood pressure 102/58, heart rate 77, respirations 20, O2 saturation is 97% on 3 L nasal cannula. General: This is a chronically ill- appearing elderly male, lying in bed in no acute distress. Heart: S1, S2 normal. Regular rate and rhythm. Lungs: Equal air entry bilaterally. No crackles. No rales. Abdomen: Positive bowel sounds. Soft, nontender, nondistended. Extremities: No edema, no cyanosis. Neurologic: The patient is alert and oriented x3. LABORATORIES: Sodium 138, potassium 3.6, chloride 99, CO2 of 25, BUN 23, creatinine 1.2, glucose 106. ASSESSMENT AND PLAN: 1. Parkinson's disease. Continue on the current medications as prescribed. 2. Bacteremia secondary to Escherichia coli. Continue on Rocephin. 3. Atrial fibrillation. The patient is rate controlled and on Xarelto. 4. Peritonitis. Continue with antibiotic therapy. 5. Status post laparoscopic cholecystectomy secondary to acute cholecystitis. Stable. 6. Severe deconditioning. Continue with PT and OT. We will await inpatient rehabilitation placement. 7. Deep vein thrombosis prophylaxis. The patient is on Xarelto. cc: Akiko Lucero MD
--- NOTE | 2018-06-21 14:13 | GENERAL SURGERY PROGRESS NOTE ---
DATE: 06/21/2018 SUBJECTIVE: The patient has no new complaints overnight. He is eating a little better. OBJECTIVE: He is afebrile. Vital signs are stable. General: He is arousable. No acute distress. Follows commands. GI: Soft, nontender, nondistended. Incision is clean, dry, intact. LABORATORY DATA: Pre-albumin 17.8. CBC, basic metabolic profile reviewed and unremarkable. ASSESSMENT AND PLAN: 72-year-old male status post laparoscopic cholecystectomy. He is slowly improving. I believe his nutrition is improving. I will hold off initiating any parenteral nutrition at this time. Continue supplementing with Ensure and we are awaiting transfer to inpatient rehab. cc: Les Vasquez MD
--- NOTE | 2018-06-21 14:54 | Diag Imaging Result Doc PS360 ---
EXAM: ABDOMEN FLAT/UPRIGHT INDICATION: constipation TECHNIQUE: 2 views COMPARISON: 06/10/2018 FINDINGS: There are nonspecific bowel gas and stool patterns. There does not appear to be an excessive amount stool in the colon. There is no obstructive bowel pattern. There is no evidence of large volume free abdominal gas. IMPRESSION: Nonspecific abdomen. Electronically signed by Hossein Miranda 06/21/2018 2:51 PM
[2018-06-21] MEDS: ARICEPT PO SCH (20:39)
[2018-06-21] MEDS: SEROQUEL PO SCH (20:41)
[2018-06-22] MEDS: XOPENEX NEB INH SCH ×6 (03:21→23:00)
[2018-06-22] MEDS: ATROVENT NEB INH SCH ×6 (03:21→23:00)
[2018-06-22 06:16] LABS: BASO# 0.02 X1000 (0.0-0.2); BASO% 0.3 % (0.0-0.8); EOS# 0.12 X1000 (0.0-0.7); EOS% 1.9 % (0.0-10.0); HEMATOCRIT 39.4 % (42.0-52.0); HEMOGLOBIN 13.1 g/dL (14.0-18.0); IMM GRAN# 0.06 X1000 (0.0-0.04); LYMPH# 0.71 X1000 (1.2-3.4); LYMPH% 11.4 % (20.5-51.1); MCH 28.7 PG (27-31); MCHC 33.2 g/dL (33-37); MCV 86.4 FL (81-99); MONO# 0.71 X1000 (0.11-0.59); MONO% 11.4 % (1.7-9.3); MPV 11.2 FL (7.4-10.4); NEUT# 4.61 X1000 (1.4-6.5); PLT 332 X1000 (130-400); RBC 4.56 XMIL (4.7-6.1); RDW 14.6 % (11.5-14.5); WBC 6.23 X1000 (4.8-10.8)
[2018-06-22 06:31] LABS: CALCIUM 8.9 mg/dL (8.8-10.2); CREATININE 1.3 mg/dL (0.7-1.2); POTASSIUM 3.4 mmol/L (3.5-5.1)
[2018-06-22] MEDS: ADVAIR 250/50 DISKUS INH SCH ×2 (07:34→20:10)
[2018-06-22] MEDS: POTASSIUM CHLORIDE 20 MEQ/SWI 20 MEQ/100 ML IVPB IV SCH ×2 (07:51→10:10)
[2018-06-22] MEDS: COLACE PO SCH ×2 (08:08→23:43)
[2018-06-22] MEDS: SYMMETREL PO SCH ×2 (08:08→23:43)
[2018-06-22] MEDS: SINEMET 25/100 PO SCH ×4 (08:08→23:44)
[2018-06-22] MEDS: XARELTO PO SCH ×2 (08:08→17:00)
[2018-06-22] MEDS: PROTONIX PO SCH ×3 (08:08→23:43)
[2018-06-22] MEDS: DULCOLAX PR SCH (08:09)
[2018-06-22] MEDS: LASIX IV SCH ×2 (09:06→23:44)
--- NOTE | 2018-06-22 09:21 | GENERAL SURGERY PROGRESS NOTE ---
DATE: 06/21/2018 SUBJECTIVE: The patient has had no acute problems overnight. OBJECTIVE: Vital Signs: He is afebrile. Vital signs are stable. General: He is awake, alert, is noted in no acute distress. He is eating breakfast. Gastrointestinal: Soft, nontender, nondistended. LABORATORY: CBC and metabolic profile reviewed and unremarkable. ASSESSMENT AND PLAN: A 72-year-old male status post laparoscopic cholecystectomy with gram- negative bacteremia, severe Parkinson's disease and deconditioning. We will remove the Miranda catheter today. We are monitoring his oral intake and awaiting placement in an inpatient rehab facility. cc: Les Vasquez MD
--- NOTE | 2018-06-22 10:01 | PROGRESS NOTE ---
DATE: 06/22/2018 Mr. Brandon continues stable neurologically. On exam this morning, he is awake, alert, attentive. He is not completely oriented. There is a little bit of rigidity, but that is less prominent than when I initially saw him. I did not observe resting tremor during my time at the bedside today. Speech is significantly dysarthric, but easily understood and is not markedly parkinsonian now. Discussed briefly with at the bedside. I do not have any new suggestions from Neurology standpoint. Would continue current Parkinson's medication regimen and get him to follow up with Dr. Talbert after discharge. cc: Rose Mcgee III, MD
[2018-06-22] MEDS: PATIENT'S OWN MED PO SCH (10:14)
[2018-06-22] MEDS: HALDOL IV PRN (12:20)
[2018-06-22] MEDS: FOLIC ACID 1 MG in NS 50 ML IV SCH (12:23)
[2018-06-22] MEDS: ROCEPHIN 1 GM in NS 50 ML IV SCH (13:28)
--- NOTE | 2018-06-22 14:20 | PROGRESS NOTE ---
DATE: 06/22/2018 SUBJECTIVE: The patient is resting comfortably. No acute events noted overnight. OBJECTIVE: Vital signs: Temperature 98 degrees, blood pressure 142/82, heart rate 67, respirations 20, O2 saturation is 100% on 2 L nasal cannula. General: This is a chronically ill-appearing elderly male, lying in bed in no acute distress. Heart: S1, S2 normal. Regular rate and rhythm. Lungs: Clear to auscultation bilaterally. Abdomen: Positive bowel sounds. Soft, nontender, nondistended. Extremities: No edema. No cyanosis. Neurological: The patient is awake and will interact. LABORATORIES: White blood cell count 6.2, hemoglobin 13, hematocrit 39, platelets 332,000. Sodium 135, potassium 3.4, chloride 97, CO2 of 28, BUN 31, creatinine 1.3, glucose 107, magnesium 2.5. ASSESSMENT AND PLAN: 1. Bacteremia secondary to Escherichia coli. Continue on Rocephin. 2. Atrial fibrillation. The patient is rate controlled. Continue on Xarelto. 3. Peritonitis. Continue with Rocephin. 4. Parkinson's disease. Continue on the current treatment regimen. 5. Status post laparoscopic cholecystectomy secondary to acute cholecystitis. Stable. 6. Severe deconditioning. Continue with PT and OT. Student Records Coordinator is working on inpatient rehabilitation placement. 7. Hypokalemia. We will replace the potassium today. 8. Chronic kidney disease. Stable. 9. Atelectasis. Continue with incentive spirometry. 10. Right hemidiaphragm elevation. Monitor. cc: Akiko Lucero MD MTDD
--- NOTE | 2018-06-22 14:24 | Diag Imaging Result Doc PS360 ---
CHEST-PORTABLE - 06/22/2018 INDICATION: dyspnea COMPARISON: 06/19/2018 FINDINGS: There is severe right hemidiaphragm elevation. Lung volumes are overall very low. There is some worsening linear atelectasis in the right lung base. There is mild cardiomegaly. The pulmonary edema has essentially resolved. No pneumothorax or large pleural effusion. IMPRESSION: Mixed changes from prior. Electronically signed by Sudeep Boudreaux 06/22/2018 2:21 PM
[2018-06-22] MEDS: ARICEPT PO SCH (23:43)
[2018-06-22] MEDS: SEROQUEL PO SCH (23:43)
[2018-06-23] MEDS: ATROVENT NEB INH SCH ×6 (03:11→23:23)
[2018-06-23] MEDS: XOPENEX NEB INH SCH ×6 (03:12→23:23)
[2018-06-23 06:02] LABS: HEMATOCRIT 37.7 % (42.0-52.0); HEMOGLOBIN 12.4 g/dL (14.0-18.0); MCH 28.7 PG (27-31); MCHC 32.9 g/dL (33-37); MCV 87.3 FL (81-99); MPV 11.1 FL (7.4-10.4); RBC 4.32 XMIL (4.7-6.1); RDW 14.6 % (11.5-14.5); WBC 5.65 X1000 (4.8-10.8)
[2018-06-23 06:18] LABS: AGAP 13; BUN 28 mg/dL (8-22); CALCIUM 8.7 mg/dL (8.8-10.2); CHLORIDE 103 mmol/L (98-107); COSMO 287; CREATININE 1.1 mg/dL (0.7-1.2); ESTIMATED GFR > 60; GLUCOSE 130 mg/dL (70-104); POTASSIUM 3.9 mmol/L (3.5-5.1); SODIUM 140 mmol/L (136-145); TCO2 24 mmol/L (25-35)
[2018-06-23] MEDS: ADVAIR 250/50 DISKUS INH SCH ×2 (07:33→19:55)
[2018-06-23] MEDS: D5 1/2 NS + KCL 20 MEQ 1,000 ML IV SCH (09:23)
[2018-06-23] MEDS: LASIX IV SCH ×2 (09:24→22:50)
[2018-06-23] MEDS: COLACE PO SCH ×2 (09:24→22:50)
[2018-06-23] MEDS: XARELTO PO SCH ×2 (09:24→18:02)
[2018-06-23] MEDS: SINEMET 25/100 PO SCH ×4 (09:24→22:50)
[2018-06-23] MEDS: PROTONIX PO SCH ×2 (09:24→22:50)
[2018-06-23] MEDS: SYMMETREL PO SCH ×2 (09:24→22:51)
[2018-06-23] MEDS: DULCOLAX PR SCH (09:24)
[2018-06-23] MEDS: PATIENT'S OWN MED PO SCH (09:43)
[2018-06-23] MEDS: FOLIC ACID 1 MG in NS 50 ML IV SCH (11:29)
[2018-06-23] MEDS: ROCEPHIN 1 GM in NS 50 ML IV SCH (12:10)
--- NOTE | 2018-06-23 12:18 | PROGRESS NOTE ---
DATE: 06/23/2018 SUBJECTIVE: The patient is lethargic, resting in bed. present in the room. OBJECTIVE: Vital signs: Temperature is 98.6 degrees, pulse 78, respiratory rate 14, blood pressure 111/60, oxygen 90%. HEENT: Atraumatic, normocephalic. Cardiovascular: S1, S2. Respiratory: Has evidence of good air entry bilaterally. Abdomen: Soft, nontender. No masses felt. Extremities: No evidence of edema in the lower extremities. Central nervous system: The patient is lethargic. No obvious focal deficits noted. LABS: WBC is 5.6, hematocrit 37.7, platelet count 327,000. Sodium is 140, potassium 3.9, chloride is 103, bicarb 24, BUN is 20, creatinine is 1.1. ASSESSMENT AND PLAN: 1. Escherichia coli bacteremia. Continue current antibiotic regimen. 2. Atrial fibrillation. Heart rate is controlled. Continue rate controlling agent as well as anticoagulation. 3. Peritonitis. Continue current antibiotic regimen. 4. Parkinson's disease. Continue carbidopa levodopa as well as amantadine. Neurology following. 5. Status post laparoscopic cholecystectomy for acute cholecystitis. Surgery following. 6. Severe deconditioning. Continue PT as well as OT. 7. Hypokalemia. Resolved. 8. Chronic kidney disease. Renal function improved. 9. Placement. The patient does have a facility identified for placement, [facility], but insurance approval is currently pending. cc: Jason Rai MD MTDD
[2018-06-23] MEDS: ARICEPT PO SCH (22:50)
[2018-06-23] MEDS: SEROQUEL PO SCH (22:50)
[2018-06-24] MEDS: XOPENEX NEB INH SCH ×6 (03:18→23:18)
[2018-06-24] MEDS: ATROVENT NEB INH SCH ×6 (03:18→23:18)
[2018-06-24] MEDS: ADVAIR 250/50 DISKUS INH SCH ×2 (07:21→20:15)
[2018-06-24] MEDS: XARELTO PO SCH ×2 (08:48→17:29)
[2018-06-24] MEDS: PROTONIX PO SCH ×3 (08:49→22:18)
[2018-06-24] MEDS: SYMMETREL PO SCH ×2 (08:49→14:35)
[2018-06-24] MEDS: DULCOLAX PR SCH (08:49)
[2018-06-24] MEDS: LASIX IV SCH ×2 (08:49→22:18)
[2018-06-24] MEDS: SINEMET 25/100 PO SCH ×4 (08:49→22:17)
[2018-06-24] MEDS: COLACE PO SCH ×2 (08:49→22:17)
[2018-06-24] MEDS: PATIENT'S OWN MED PO SCH (09:06)
--- NOTE | 2018-06-24 11:04 | PROGRESS NOTE ---
DATE: 06/24/2018 SUBJECTIVE: The patient resting on bed. Not in any obvious distress. OBJECTIVE: Vital signs: Temperature 98.8 degrees, pulse 74, respiratory 16, blood pressure is 89/55, O2 saturation 100%. HEENT: Atraumatic, normocephalic. Cardiovascular: S1, S2. Respiratory system: Has evidence of good air entry bilaterally. Abdomen: Soft, nontender. No masses felt. Extremities: No evidence of edema. Central nervous system: No obvious focal deficits noted. LABORATORY DATA: None. ASSESSMENT AND PLAN: 1. Escherichia coli bacteremia. The patient is currently on intravenous ceftriaxone. 2. Atrial fibrillation. Heart rate controlled. Continue rate controlling agent as well as anticoagulation. 3. Peritonitis. Continue current antibiotic regimen. 4. Parkinson's disease. Continue carbidopa/levodopa as well as amantadine. Neurology is following. 5. Status post laparoscopic cholecystectomy for acute cholecystitis. Surgery following. 6. Deconditioning. Physical therapy recommended. 7. Hypokalemia resolved. 8. Chronic kidney disease. Renal function improving. 9. Placement. Patient does have placement identified at [facility]. However insurance approval is currently pending. cc: Jason Rai MD MTDD
[2018-06-24] MEDS: D5 1/2 NS + KCL 20 MEQ 1,000 ML IV SCH (11:23)
[2018-06-24] MEDS: FOLIC ACID 1 MG in NS 50 ML IV SCH (11:32)
[2018-06-24] MEDS: ROCEPHIN 1 GM in NS 50 ML IV SCH (14:02)
--- NOTE | 2018-06-24 15:52 | PROGRESS NOTE ---
DATE: 06/24/2018 SUBJECTIVE: Mr. Brandon seemed a little brighter yesterday. According to , he seemed more attentive and maybe more appropriate with conversation. Today, he has been sleepy, and may have had some hallucinations, looking around his room and talking about things as if he were at home. reports he has stood with assistance, but has not taken steps. He was much more independent prior to recent illness. OBJECTIVE: On my exam, he continues with reasonable limb tone. No tremor. He was sleepy and appeared to be sleeping when not vigorously involved in conversation. Head and neck are unremarkable. There is no meningismus. I reviewed prior Parkinson's management with Mrs. Brandon. He has clearly had some periods of confusion with psychosis improved with reduction of antiparkinsonian medication. He did not tolerate Nuplazid 34 mg daily, but seemed to get significant benefit with Nuplazid 17 mg daily and currently 20 mg daily. Quetiapine 200 mg at bedtime has been on board chronically, and has seemed to help him rest at night without causing daytime somnolence. I have reviewed his current medication list. He has had a few small doses of haloperidol in recent days. He has not had morphine in several days. IMPRESSION AND PLAN: 1. Global encephalopathy. This is likely multifactorial. There is clear history of baseline cognitive impairment which predisposes him to protracted encephalopathy with any toxic or metabolic disturbance. Some of his current state may simply be a prolonged recovery following his acute medical illness. I do not see evidence of increased intracranial pressure, SHOTWELD OPERATOR infection, or new SHOTWELD OPERATOR ischemic lesion. 2. Baseline parkinsonism with features of idiopathic Parkinson disease and history of good response to dopaminergic medicines initially. 3. Baseline cognitive impairment, tolerating donepezil. 4. History of psychosis, responding to reduction in dopaminergic medication. I do not have any urgent suggestion. I discussed potential adjustment in his Parkinson disease regimen with briefly, but she is satisfied with current management and current clinical course. She remains optimistic that he will recover with time and physical therapy. She plans rehab assignment when he is ready for discharge. She will have followup with Dr. Talbert soon. Thanks for asking Neurology to see Mr. Brandon. cc: MD NEEL Herrera III
[2018-06-24] MEDS: ARICEPT PO SCH (22:17)
[2018-06-24] MEDS: SEROQUEL PO SCH (22:17)
[2018-06-25] MEDS: ATROVENT NEB INH SCH ×6 (05:21→23:40)
[2018-06-25] MEDS: XOPENEX NEB INH SCH ×6 (05:21→23:40)
[2018-06-25 06:15] LABS: BASO# 0.06 X1000 (0.0-0.2); EOS# 0.17 X1000 (0.0-0.7); EOS% 2.7 % (0.0-10.0); HEMATOCRIT 39.6 % (42.0-52.0); HEMOGLOBIN 13.1 g/dL (14.0-18.0); IMM GRAN# 0.06 X1000 (0.0-0.04); LYMPH# 0.87 X1000 (1.2-3.4); LYMPH% 13.8 % (20.5-51.1); MCH 28.5 PG (27-31); MCHC 33.1 g/dL (33-37); MCV 86.3 FL (81-99); MONO# 0.76 X1000 (0.11-0.59); MONO% 12.1 % (1.7-9.3); NEUT# 4.37 X1000 (1.4-6.5); NEUT% 69.4 % (42.2-75.2); PLT 372 X1000 (130-400); RBC 4.59 XMIL (4.7-6.1); RDW 14.6 % (11.5-14.5); WBC 6.29 X1000 (4.8-10.8)
[2018-06-25 06:47] LABS: ALB/GLOB RATIO 0.9; ALBUMIN 3.2 g/dL (3.5-5.0); CALCIUM 9.1 mg/dL (8.8-10.2); CREATININE 1.3 mg/dL (0.7-1.2); TOTAL BILIRUBIN 0.42 mg/dL (0.20-1.00); TOTAL PROTEIN 6.7 g/dL (6.3-8.3)
[2018-06-25] MEDS: D5 1/2 NS + KCL 20 MEQ 1,000 ML IV SCH (11:53)
[2018-06-25] MEDS: FOLIC ACID 1 MG in NS 50 ML IV SCH (11:53)
[2018-06-25] MEDS: SYMMETREL PO SCH ×2 (11:53→23:24)
[2018-06-25] MEDS: LASIX IV SCH ×2 (11:53→23:24)
[2018-06-25] MEDS: XARELTO PO SCH ×2 (11:53→17:24)
[2018-06-25] MEDS: PROTONIX PO SCH ×2 (11:54→23:24)
[2018-06-25] MEDS: SINEMET 25/100 PO SCH ×4 (11:54→23:24)
[2018-06-25] MEDS: DULCOLAX PR SCH (11:54)
[2018-06-25] MEDS: COLACE PO SCH ×2 (12:02→23:23)
[2018-06-25] MEDS: PATIENT'S OWN MED PO SCH (12:03)
[2018-06-25] MEDS: ROCEPHIN 1 GM in NS 50 ML IV SCH (14:50)
[2018-06-25] MEDS: ADVAIR 250/50 DISKUS INH SCH ×2 (15:57→23:12)
--- NOTE | 2018-06-25 16:34 | PROGRESS NOTE ---
DATE: 06/25/2018 SUBJECTIVE: Patient resting comfortable in bed. Not in any obvious distress. OBJECTIVE: Vital signs: Temperature 97.9 degrees, pulse 78, respirations 20, blood pressure is 104/62, oxygen saturation 97%. HEENT: Atraumatic, normocephalic. Cardiovascular System: S1, S2. Respiratory system has evidence of good air entry bilaterally. Abdomen is soft, nontender. No masses felt. Extremities: No evidence of edema. Central Nervous System: No obvious focal deficit noted. LABORATORY DATA: WBC 6.29, hematocrit is 39.6 with a platelet count of 372,000. Sodium is 140, potassium 4.0, chloride 98, bicarbonate 29, BUN is 32, creatinine is 1.3. ASSESSMENT AND PLAN: 1. Escherichia coli bacteremia. Continue current antibiotic regimen. 2. Atrial fibrillation. Heart rate controlled. Continue rate controlling agent as well as anticoagulation. 3. Peritonitis. Continue current antibiotic regimen. 4. Parkinson's disease. Continue carbidopa/levodopa as well as amantadine today. Neurology is following. 5. Status post cholecystectomy for acute cholecystitis. Surgery following. 6. Deconditioning. PT recommended. 7. Chronic kidney disease. Follow up on renal function. 8. Placement. The patient does have placement at [facility]; however, insurance approval is currently pending. cc: Jason Rai MD
[2018-06-25] MEDS: SEROQUEL PO SCH (23:23)
[2018-06-25] MEDS: ARICEPT PO SCH (23:24)
[2018-06-26] MEDS: XOPENEX NEB INH SCH ×6 (03:20→23:20)
[2018-06-26] MEDS: ATROVENT NEB INH SCH ×6 (03:20→23:20)
[2018-06-26 06:33] LABS: BASO# 0.07 X1000 (0.0-0.2); BASO% 0.9 % (0.0-0.8); EOS# 0.22 X1000 (0.0-0.7); EOS% 2.7 % (0.0-10.0); HEMATOCRIT 40.3 % (42.0-52.0); HEMOGLOBIN 13.4 g/dL (14.0-18.0); IMM GRAN# 0.05 X1000 (0.0-0.04); IMM GRAN% 0.6 % (0.0-0.5); LYMPH# 1.04 X1000 (1.2-3.4); LYMPH% 12.7 % (20.5-51.1); MCH 28.8 PG (27-31); MCHC 33.3 g/dL (33-37); MCV 86.5 FL (81-99); MONO# 0.88 X1000 (0.11-0.59); MONO% 10.7 % (1.7-9.3); NEUT# 5.94 X1000 (1.4-6.5); NEUT% 72.4 % (42.2-75.2); PLT 384 X1000 (130-400); RBC 4.66 XMIL (4.7-6.1); RDW 14.7 % (11.5-14.5)
[2018-06-26 07:10] LABS: AGAP 11; ALB/GLOB RATIO 0.9; ALBUMIN 3.2 g/dL (3.5-5.0); ALKALINE PHOSPHATASE 107 U/L (32-122); BUN 34 mg/dL (8-22); CALCIUM 8.8 mg/dL (8.8-10.2); CHLORIDE 97 mmol/L (98-107); COSMO 283; CREATININE 1.1 mg/dL (0.7-1.2); ESTIMATED GFR > 60; GLUCOSE 120 mg/dL (70-104); GOT 12 U/L (10-34); GPT 7 U/L (10-44); POTASSIUM 4.3 mmol/L (3.5-5.1); SODIUM 137 mmol/L (136-145); TCO2 29 mmol/L (25-35); TOTAL BILIRUBIN 0.39 mg/dL (0.20-1.00); TOTAL PROTEIN 6.6 g/dL (6.3-8.3)
[2018-06-26] MEDS: ADVAIR 250/50 DISKUS INH SCH ×2 (07:58→19:20)
[2018-06-26] MEDS: D5 1/2 NS + KCL 20 MEQ 1,000 ML IV SCH (09:22)
[2018-06-26] MEDS: XARELTO PO SCH ×2 (09:23→17:25)
[2018-06-26] MEDS: PATIENT'S OWN MED PO SCH (09:23)
[2018-06-26] MEDS: DULCOLAX PR SCH (09:24)
[2018-06-26] MEDS: COLACE PO SCH ×2 (09:24→22:06)
[2018-06-26] MEDS: LASIX IV SCH ×2 (09:25→22:00)
[2018-06-26] MEDS: SYMMETREL PO SCH ×2 (09:25→21:58)
[2018-06-26] MEDS: PROTONIX PO SCH ×2 (09:26→21:58)
[2018-06-26] MEDS: SINEMET 25/100 PO SCH ×4 (09:29→21:59)
--- NOTE | 2018-06-26 11:31 | PROGRESS NOTE ---
DATE: 06/26/2018 SUBJECTIVE: Patient resting comfortably in bed. Not in any obvious distress. OBJECTIVE: Vital Signs: Temperature 98 degrees, pulse 75, respirations 18, blood pressure 104/68, and oxygen saturation 96%. HEENT: Atraumatic, normocephalic. Cardiovascular: S1, S2. Respiratory: There is evidence of good air entry bilaterally. Abdomen: Soft. Nontender. No masses felt. Extremities: No evidence of edema. Central nervous system: No obvious focal deficit noted. LABORATORY: WBC 8.3, hematocrit 40.3 with a platelet count of 304,000. Sodium is 137, potassium 4.3, chloride 97, bicarb is 29, BUN is 34, and creatinine is 1.1. ASSESSMENT AND PLAN: 1. Escherichia coli bacteremia. Continue current antibiotic regimen. 2. Atrial fibrillation. Heart rate is controlled. Continue rate controlling agent as well as anticoagulation. 3. Status post cholecystectomy for acute cholecystitis. Surgery following. 4. Peritonitis. Continue current antibiotic regimen. 5. Parkinson's disease. Continue carbidopa/levodopa as well as amantadine. Neurology is following. 6. Deconditioning. PT recommended. 7. Chronic kidney disease. Follow up on renal function. Avoid nephrotoxic agents. 8. Disposition. The patient has a bed at [facility]. However, we are waiting for insurance approval before patient can be discharged. cc: Jason Rai MD
[2018-06-26] MEDS: FOLIC ACID 1 MG in NS 50 ML IV SCH (11:51)
[2018-06-26] MEDS: ROCEPHIN 1 GM in NS 50 ML IV SCH (13:10)
[2018-06-26] MEDS: TYLENOL PO PRN (21:53)
[2018-06-26] MEDS: MORPHINE IV PRN (21:53)
[2018-06-26] MEDS: ARICEPT PO SCH (21:58)
[2018-06-26] MEDS: SEROQUEL PO SCH (21:59)
[2018-06-27] MEDS: XOPENEX NEB INH SCH ×6 (03:20→23:30)
[2018-06-27] MEDS: ATROVENT NEB INH SCH ×6 (03:20→23:30)
[2018-06-27] MEDS: D5 1/2 NS + KCL 20 MEQ 1,000 ML IV SCH (08:49)
[2018-06-27] MEDS: COLACE PO SCH ×2 (08:55→21:39)
[2018-06-27] MEDS: SYMMETREL PO SCH ×2 (08:55→21:39)
[2018-06-27] MEDS: LASIX IV SCH ×2 (08:55→21:39)
[2018-06-27] MEDS: ADVAIR 250/50 DISKUS INH SCH ×2 (08:55→19:53)
[2018-06-27] MEDS: SINEMET 25/100 PO SCH ×4 (08:56→21:40)
[2018-06-27] MEDS: XARELTO PO SCH ×2 (08:56→17:39)
[2018-06-27] MEDS: DULCOLAX PR SCH (08:56)
[2018-06-27] MEDS: PROTONIX PO SCH ×2 (09:00→21:39)
[2018-06-27] MEDS: PATIENT'S OWN MED PO SCH (09:18)
[2018-06-27] MEDS: FOLIC ACID 1 MG in NS 50 ML IV SCH (11:58)
[2018-06-27] MEDS: ROCEPHIN 1 GM in NS 50 ML IV SCH (13:41)
--- NOTE | 2018-06-27 17:57 | PROGRESS NOTE ---
DATE: 06/27/2018 SUBJECTIVE: This morning Mr. Brandon refers to be doing okay, was resting comfortably in bed. Two daughters were at the bedside at the time of the encounter. OBJECTIVE: Vital signs:: His blood pressure is 96/63, pulse 83, respirations 20, temperature 98 degrees. The patient was saturating 96% on room air. On general exam, Mr. Brandon is a 72-year- old gentleman. He is in bed, in no distress. Mucosa is pink and moist. Anicteric. Acyanotic. Neck is supple. Chest was clear to auscultation. No crepitation, no rhonchi. Cardiovascular: Regular rate and rhythm. GI: Abdomen was soft, distended, but nontender. Bowel sounds present. There is some dressing on the anterior abdominal wall suggestive of the recent laparoscopic surgery. Extremities: No pedal edema. UTILITY BILL COLLECTOR: The patient is sleeping but easily arousable. Follows commands. LABORATORY DATA: Reviewed from yesterday. None today. DIAGNOSTIC DATA: No recent imaging studies. Microbiology: Blood cultures repeat have been negative. The initial blood culture was positive for E. coli which was pansensitive. MEDICATIONS: The patient's current have all also been reviewed. He is still on ceftriaxone. It appears today is day 8 on that. ASSESSMENT AND PLAN: 1. Acute cholecystitis, status post laparoscopic surgery. This was done by Dr. Vasquez on 06/10/2018. 2. Escherichia coli bacteremia associated with peritonitis. Subsequent blood cultures have been negative. 3. Atrial fibrillation. Currently rate controlled. The patient is on anticoagulation. 4. History of Parkinson disease, stable. 5. Generalized weakness and deconditioning. The patient is getting physical therapy. 6. [id number] renal failure. Creatinine seems to have been trending down to normalization. 7. Disposition is pending approval for a bed at [facility]. cc: bAdulaziz Bautista MD
[2018-06-27] MEDS ORDERED: CALMOSEPTINE OINTMENT TOP PRN (18:23)
[2018-06-27] MEDS: MORPHINE IV PRN (18:54)
[2018-06-27] MEDS: SEROQUEL PO SCH (21:35)
[2018-06-27] MEDS: ARICEPT PO SCH (21:39)
[2018-06-28] MEDS: XOPENEX NEB INH SCH ×6 (04:25→23:00)
[2018-06-28] MEDS: ATROVENT NEB INH SCH ×6 (04:25→23:00)
[2018-06-28] MEDS: ADVAIR 250/50 DISKUS INH SCH ×2 (08:13→19:55)
[2018-06-28] MEDS: SYMMETREL PO SCH ×2 (09:18→22:27)
[2018-06-28] MEDS: SINEMET 25/100 PO SCH ×4 (09:18→22:26)
[2018-06-28] MEDS: DULCOLAX PR SCH (09:18)
[2018-06-28] MEDS: XARELTO PO SCH ×2 (09:18→17:25)
[2018-06-28] MEDS: COLACE PO SCH ×2 (09:18→22:27)
[2018-06-28] MEDS: PROTONIX PO SCH ×2 (09:18→22:26)
[2018-06-28] MEDS: LASIX IV SCH ×2 (09:19→22:26)
[2018-06-28] MEDS: PATIENT'S OWN MED PO SCH (11:20)
[2018-06-28] MEDS: D5 1/2 NS + KCL 20 MEQ 1,000 ML IV SCH (11:28)
[2018-06-28] MEDS: FOLIC ACID 1 MG in NS 50 ML IV SCH (13:11)
--- NOTE | 2018-06-28 13:48 | PROGRESS NOTE ---
DATE: 06/28/2018 SUBJECTIVE: Patient resting comfortably in bed. OBJECTIVE: Vital signs: Temperature 98.4 degrees, pulse 90, respiratory rate is 18, blood pressure 110/71, oxygen saturation is 96%. HEENT: Atraumatic, normocephalic. Cardiovascular System: S1, S2. Respiratory system has evidence of good air entry bilaterally. Abdomen is soft, nontender. No masses felt. Extremities: No evidence of edema. Central Nervous System: No obvious focal deficit noted. LABORATORIES: None. ASSESSMENT AND PLAN: 1. Escherichia coli bacteremia/peritonitis. The patient has completed antibiotic treatment. 2. Atrial fibrillation. Heart rate controlled. Continue rate-controlling agent, as well as anticoagulation. 3. Status post cholecystectomy for acute cholecystitis. Surgery following. 4. Parkinson's disease. Continue carbidopa/levodopa as well as amantadine. Neurology is following. 5. Chronic kidney disease. Follow up on renal function. Avoid nephrotoxic agents. 6. Deconditioning. PT recommended. DISPOSITION: Patient has a bed at [facility]; however, we are awaiting insurance prior to discharge. cc: Jason Rai MD MTDD
[2018-06-28] MEDS: MORPHINE IV PRN (18:55)
[2018-06-28] MEDS: ARICEPT PO SCH (22:26)
[2018-06-28] MEDS: SEROQUEL PO SCH (22:29)
[2018-06-29] MEDS: ATROVENT NEB INH SCH ×6 (03:25→23:31)
[2018-06-29] MEDS: XOPENEX NEB INH SCH ×6 (03:26→23:31)
[2018-06-29] MEDS: ADVAIR 250/50 DISKUS INH SCH ×2 (08:00→20:13)
[2018-06-29] MEDS: PROTONIX PO SCH ×3 (08:35→23:02)
[2018-06-29] MEDS: COLACE PO SCH ×2 (08:35→23:02)
[2018-06-29] MEDS: LASIX IV SCH ×2 (08:35→23:03)
[2018-06-29] MEDS: SYMMETREL PO SCH ×2 (08:35→23:01)
[2018-06-29] MEDS: SINEMET 25/100 PO SCH ×4 (08:35→23:02)
[2018-06-29] MEDS: XARELTO PO SCH ×2 (08:35→17:09)
[2018-06-29] MEDS: DULCOLAX PR SCH (08:36)
[2018-06-29] MEDS: PATIENT'S OWN MED PO SCH (08:59)
[2018-06-29] MEDS: FOLIC ACID 1 MG in NS 50 ML IV SCH (14:12)
--- NOTE | 2018-06-29 14:19 | PROGRESS NOTE ---
DATE: 06/29/2018 SUBJECTIVE: The patient resting in bed. present in the room. OBJECTIVE: Vital Signs: Temperature 97.6 degrees, pulse 77, respirations 18, blood pressure 109/74, and oxygen saturation 100%. HEENT: Atraumatic, normocephalic. Cardiovascular: S1, S2. Respiratory: There is evidence of good air entry bilaterally. Abdomen: Soft, nontender. No masses felt. Extremities: No evidence of edema. Central nervous system: No obvious focal deficit noted. LABORATORY DATA: None. ASSESSMENT AND PLAN: 1. Escherichia coli bacteremia/peritonitis. The patient has completed antibiotic treatment. 2. Status post cholecystectomy for acute cholecystitis. Stable. 3. Atrial fibrillation. Heart rate is controlled. Continue rate controlling agent as well as anticoagulation. 4. Parkinson's disease. Continue carbidopa with levodopa as well as Coumadin. Neurology is following. 5. Chronic kidney disease. Follow up on renal function. Avoid nephrotoxic agent. 6. Deconditioning. PT recommended. 7. Disposition: The patient has a bed at [facility]. However, we are waiting for the patient's insurance to approve placement.. cc: Jason Rai MD MTDD
[2018-06-29] MEDS: ARICEPT PO SCH (23:02)
[2018-06-29] MEDS: SEROQUEL PO SCH (23:02)
[2018-06-29] MEDS: HALDOL IV PRN (23:03)
[2018-06-30] MEDS: ATROVENT NEB INH SCH ×6 (03:29→23:18)
[2018-06-30] MEDS: XOPENEX NEB INH SCH ×6 (03:29→23:18)
[2018-06-30] MEDS: ADVAIR 250/50 DISKUS INH SCH ×2 (07:31→19:49)
[2018-06-30] MEDS: XARELTO PO SCH ×2 (10:24→16:15)
[2018-06-30] MEDS: PROTONIX PO SCH ×2 (10:24→20:51)
[2018-06-30] MEDS: SINEMET 25/100 PO SCH ×2 (10:24→13:53)
[2018-06-30] MEDS: LASIX IV SCH (10:24)
[2018-06-30] MEDS: COLACE PO SCH ×2 (10:24→20:51)
[2018-06-30] MEDS: DULCOLAX PR SCH (10:25)
[2018-06-30] MEDS: SYMMETREL PO SCH ×2 (11:04→16:14)
[2018-06-30] MEDS: PATIENT'S OWN MED PO SCH ×2 (11:04→16:15)
[2018-06-30] MEDS: D5 1/2 NS + KCL 20 MEQ 1,000 ML IV SCH (12:37)
[2018-06-30] MEDS: FOLIC ACID 1 MG in NS 50 ML IV SCH (13:53)
[2018-06-30] MEDS: STALEVO 150 PO SCH ×2 (16:14→20:52)
--- NOTE | 2018-06-30 17:26 | PROGRESS NOTE ---
DATE: 06/30/2018 SUBJECTIVE: This morning, Mr. Brandon refers to be doing fairly okay was just awaiting for approval to go to a rehab. The was at the bedside with him and had a lot of concerns that his previous medication regimen at home has not been started or has not been dispensed to him as they used to at home. OBJECTIVELY: Current vitals: Blood pressure is 99/68, pulse is 82, respirations 16, temperature is 97.5. General: Mr. Brandon is a 72-year-old, gentleman. He is in bed. No distress. HEENT: Mucosa is pink and moist. Anicteric. Acyanotic. Neck: Supple. Chest: Good air entry bilateral. There were no crepitations. No rhonchi. Cardiovascular: Regular rate and rhythm. No murmurs, no rubs, no gallops. GI: Abdomen is soft, nontender. Bowel sounds present. There is some recent laparoscopic scars on the anterior abdominal wall. PERSONAL INJURY LITIGATION PARALEGAL: Patient was awake, follows basic commands. LABORATORY DATA: None for today. CURRENT MEDICATIONS: Have all been reviewed. ASSESSMENT: 1. Acute cholecystitis status post laparoscopic cholecystectomy. 2. Peritonitis associated with E coli bacteremia. Subsequent blood cultures have been negative. The patient has completed antimicrobial therapy. 3. Atrial fibrillation, currently rate controlled. 4. History of Parkinson disease the patient has been started back on his home medications. 5. Acute on chronic renal failure, creatinine stable. 6. Generalized weakness and deconditioning. Physical therapy is on board. 7. So, in general, we are going to restart Mr. Brandon back on his home medications. I have called the pharmacy and this will be started back later on today. We are also pending from social work standpoint for final arrangement for the rehab placement. cc: Abdulaziz Bautista MD
[2018-06-30] MEDS: ARICEPT PO SCH (20:51)
[2018-06-30] MEDS: SEROQUEL PO SCH (20:52)
[2018-07-01] MEDS: XOPENEX NEB INH SCH ×4 (03:14→16:41)
[2018-07-01] MEDS: ATROVENT NEB INH SCH ×4 (03:14→16:41)
[2018-07-01] MEDS: STALEVO 150 PO SCH ×3 (06:11→15:55)
[2018-07-01] MEDS: SYMMETREL PO SCH ×2 (06:11→11:33)
[2018-07-01] MEDS: PROTONIX PO SCH ×2 (06:12→09:46)
[2018-07-01] MEDS: ADVAIR 250/50 DISKUS INH SCH (07:24)
[2018-07-01] MEDS: COLACE PO SCH (09:46)
[2018-07-01] MEDS: XARELTO PO SCH ×2 (09:46→16:54)
[2018-07-01] MEDS: PATIENT'S OWN MED PO SCH ×2 (09:46→09:47)
[2018-07-01] MEDS: DULCOLAX PR SCH (09:47)
--- NOTE | 2018-07-01 11:18 | DISCHARGE SUMMARY ---
ADMISSION DATE: 06/09/2018 DISCHARGE DATE: LENGTH OF STAY: 22 days. DISPOSITION: [facility]. FOLLOWUP: 1. Patient's PCP. 2. Dr. Vasquez. 3. Dr. Mcgee. 4. Dr. Osman. 5. Dr. Javed Weston. CONSULTATIONS DURING THIS ADMISSION: 1. Neurology was consulted. Patient was seen by Dr. Mcgee. 2. Surgery was consulted. Patient was seen by Dr. Vasquez. 3. Cardiology was consulted. Patient was seen by Dr. Javed Weston. INVASIVE PROCEDURES DONE DURING THIS ADMISSION: A laparoscopic cholecystectomy with operative cholangiogram was done by Dr. Vasquez, on 06/10/2018, for acute cholecystitis. IMAGING STUDIES OF SIGNIFICANCE: 1. CT scan of the abdomen and pelvis on admission showed mild thickening of the gallbladder with surrounding subtle stranding and mild cholecystitis. There was atrophic pancreas with small nodular focus, and nonspecific mildly prominent fluid-filled loops of small bowel. 2. Ultrasound of the abdomen did show thickening of the wall of the gallbladder without stone, consistent with acalculous cholecystitis. 3. An echocardiogram showed ejection fraction of 65 to 70 percent, with no wall motion abnormality. 4. HIDA scan showed abnormal exam with no filling of the gallbladder. 5. An intraoperative cholangiogram showed no filling defect or stricture. There was good passage of contrast into the duodenum. 6. The chest x-ray was unremarkable. MICROBIOLOGY DATA: Blood culture was positive for E coli. A repeat on 06/15/2018 came back negative. ADMISSION DIAGNOSES: 1. Abdominal pain. 2. Parkinsonism. 3. Questionable diverticulitis/colitis. DIAGNOSES AT THE TIME OF DISCHARGE: 1. Acute cholecystitis, status post laparoscopic cholecystectomy with intraoperative cholangiogram. 2. Peritonitis, associated with Escherichia coli bacteremia. Subsequent blood cultures have been negative. Patient had 14 days of intravenous antibiotics and has finished antimicrobial therapy. 3. Atrial fibrillation, currently rate controlled. 4. History of Parkinson disease. 5. Acute on chronic renal failure. Creatinine was stabilized. 6. Generalized weakness and deconditioning. Physical Therapy was on board. 7. Dementia, on donepezil. DISCHARGE MEDICATIONS: 1. Aspirin 81 mg daily. 2. Seroquel 200 mg p.o. at bedtime. 3. Donepezil 10 mg p.o. at bedtime. 4. Celebrex 200 mg b.i.d. 5. Rasagiline (Azilect) 1 mg p.o. daily. 6. Stalevo 200 mg 4 times per day. 7. Nuplazid 20 mg p.o. daily. 8. Uroxatral 10 mg p.o. at bedtime. 9. Omeprazole 40 mg daily. 10. Docusate 250 p.o. daily. 11. Inhaler. 12. Amantadine 100 mg p.o. b.i.d. PRESENTING COMPLAINT: Abdominal pain. HISTORY OF PRESENTING COMPLAINT: Mr. Brandon is a 72-year-old gentleman who has a history of Parkinson disease. Follows up with Dr. Talbert. Came to the emergency department because of abdominal pain. The patient was thoroughly evaluated. Initial CT scan did suggest cholecystitis. The patient was admitted to the medical floor for further medical management. HOSPITAL COURSE: A consult was placed for surgery. The patient was initially seen by Dr. Vasquez. Subsequent investigations were done. The gallbladder was found to have acalculous cholecystitis. A decision was made to do a laparoscopic cholecystectomy, which was successfully done. An intraoperative cholangiogram showed no strictures and a good passage of contrast into the duodenum. Postoperatively, Mr. Brandon continues to improve. Abdominal pain resolved. He did have an E coli blood culture positive which was sensitive to the antibiotics that he was on. He got IV antibiotics for about 14 days. Subsequent blood cultures came back negative. Mr. Brandon was also seen by Neurology and also by Cardiology. He became extremely weak during the hospital course. Physical Therapy was consulted and he got a couple sessions during the hospital course. This morning he is stable. He is asymptomatic. He has been tolerating his meals and he has been having regular bowel movements. He is going to be discharged to a rehab center to continue with physical rehabilitation. He has been advised to follow up with his neurologist, Dr. Talbert. On his physical exam today, his vitals show blood pressure of 107/70, pulse is 90, respirations 16, temperature 97.8 degrees. Physical exam is unremarkable. Other discharge instructions were discussed with him. was at the bedside at the time of the encounter. They both voiced understanding. DISCHARGE TIME SPENT: 37 minutes. cc: MD Les Le MD Christopher C. Laganke, MD Dr. Norwood Dr. Dawson Peter Enrico, MD
[2018-07-01] MEDS: FOLIC ACID 1 MG in NS 50 ML IV SCH (11:33)
[2018-07-01 15:16] VITALS: BP 125/103
== END 2018-07-01 18:30 | DRG 853 ==
LOC: SUPCPDRO → ED 10:48 → SUATTDRO 14:33 → EDIPHOLD 14:33 → ICU 17:58 → 4N 06-18 17:56
PROVIDERS: ATTEND Internal Medicine
CPT/HCPCS: 51702; 71010; 71045; 74000; 74018; 74019; 74020; 74177; 74300; 76705; 78226; 80048; 80053; 80061; 80076; 80202; 81001; 82140; 82150; 82533; 82550; 82553; 82607; 82746; 82805; 83036; 83605; 83690; 83721; 83735; 84100; 84134; 84439; 84443; 84484; 85025; 85027; 85610; 85730; 86850; 86900; 86901; 87040; 87077; 87186; 88304; 88305; 88313; 93005; 93010; 93306; 94640; 94760; 94761; 94799; 96365; 96368; 96374; 96375; 97110; 97162; 97165; 97530; 97535; 99283; 99285; A9270; A9537; C1751; C9113; J0330; J0696; J1630; J1650; J1940; J2270; J2405; J2543; J3010; J3370; J3420; J3480; J7030; J7040; J7120; Q9966; Q9967; S0028; S0164